=== PATIENT | male | born 1930 | race Caucasian/White ===

== ENCOUNTER 2016-11-16 05:05 | Inpatient (IN) ==
[2016-11-16] MEDS ORDERED: 0.9 % Sodium Chloride 500 ML IVC ONE (05:09)
[2016-11-16] MEDS ORDERED: Ipratropium/Albuterol Neb 3 ML IH ONE (05:09)
[2016-11-16] MEDS ORDERED: Ondansetron 4 MG/2 ML VIAL IVP ONE (05:13)
[2016-11-16] MEDS ORDERED: Ondansetron 4 MG/2 ML VIAL ONE (05:14)
--- NOTE | 2016-11-16 05:27 | Emergency Department Note ---
START Narrative - START START: I examined this patient and my medical decision-making was reviewed with the SAP FUNCTIONAL ANALYST/PA/Advanced Practice Nurse/Resident Physician. I agree with the documented findings, disposition and treatment plan as described except to the extent set forth below. ED attending note: Patient seen with TRANSITIONAL Resident Dr. Mendez. Please see a copy of his note for details of the H&P, evaluation, management and disposition of this patient. We independently had [id number] contact with the patient Briefly: A 86-year-old male transferred from the [facility] via EMS from the long-term care unit. Patient has a history of prior stroke and dementia responded to a "rapid response". For respiratory distress. Patient has dementia and unable to provide a lot of history here. Patient has a thick tenacious brown sputum and mucus in the mouth. Some coarse breath sounds slightly hypoxic 93% on 2 L/m nasal cannula to get back in the 20s tachycardic in the mid 20s. EKG shows no acute ischemic changes. Patient has mild abdominal tenderness without distention. He is on Coumadin. Patient will get a noncontrast CT of the head and of the abdomen and pelvis as well. Probable chest x-ray. Troponin lactate CBC chemistry urinalysis. We will get an IV fluid bolus. Provided 45 minutes critical care service for this patient. Admission anticipated. Disposition pending.
[2016-11-16 05:31] LABS: Basophils % 0.1 %; Eosinophils # 0.1 K/mcL (0.0-0.6); Eosinophils % 1.9 %; Hematocrit 40.4 % (37.5-50.1); Hemoglobin 13.1 g/dL (12.9-16.9); Immature Granulocytes % 0.1 % (0-4); Lymphocytes # 0.6 K/mcL (0.6-4.6); Lymphocytes % 8.7 %; Mean Corpuscular HGB Conc 32.4 g/dL (31.6-35.5); Mean Corpuscular Hemoglobin 30.4 pg (28.0-33.3); Mean Corpuscular Volume 93.7 fL (83.0-100.0); Mean Platelet Volume 9.5 fL (9.4-12.4); Monocytes # 0.2 K/mcL (0.0-1.3); Monocytes % 2.9 %; Neutrophils # 5.9 K/mcL (1.6-8.9); Platelet Count 188 K/mcL (140-400); Red Blood Count 4.31 M/mcL (4.19-5.50); Red Cell Distribution Width 14.5 % (11.5-14.5); Segmented Neutrophils % 86.3 %
[2016-11-16 05:35] LABS: INR 1.7; Prothrombin Time 18.1 Seconds (9.4-12.1)
[2016-11-16 05:44] LABS: BUN/Creatinine Ratio 25 (6-26); Blood Urea Nitrogen 24 mg/dL (8-26); Carbon Dioxide 25 mEq/L (19-29); Chloride 102 mEq/L (98-109); Glucose 159 mg/dL (70-99); Osmolality,Calculated 295 (280-300); Potassium 3.7 mEq/L (3.5-4.5); Sodium 139 mEq/L (136-145); eGFR For African Americans > 60 (> 60); eGFR For Non-African Americans > 60 (> 60)
[2016-11-16] MEDS ORDERED: Levofloxacin 750 MG/150 ML 750 MG/150 ML BAG IVPB ONE (05:51)
[2016-11-16 05:56] LABS: Bilirubin,Urine Negative (Negative); Blood,Urine Small (Negative); Clarity,Urine Clear (Clear); Color,Urine Yellow (Yellow); Glucose,Urine (UA) Normal (Normal); Ketones,Urine Negative (Negative); Leukocyte Esterase,Urine Negative (Negative); Nitrite,Urine Negative (Negative); Protein,Urine Negative (Neg-Trace); Specific Gravity,Urine 1.008 (1.010-1.025); Urobilinogen,Urine Normal (Normal)
--- NOTE | 2016-11-16 05:56 | Emergency Department Note ---
Disposition Clinical Impression: Elevated troponin, Hypoxia Right lower lobe pneumonia Qualifiers: Pneumonia type: aspiration pneumonia Aspiration pneumonia type: unspecified Qualified Code(s): J69.0 - Pneumonitis due to inhalation of food and vomit Disposition: Admitted As Inpatient Condition: Fair Time of Disposition: 06:45 General Adult HPI - General Chief complaint: ED Shortness of Breath/Dyspnea Stated complaint: PORTILLO Time Seen by Provider: 11/16/16 05:24 Source: patient, other Mode of arrival: ambulatory Limitations: physical limitation, other Nursing Notes Reviewed: Yes Vital Signs Reviewed: Yes - History of Present Illness HPI Narrative: Mr Alonso is a 86yo male with PMH of COPD, HTN, HLD, dementia, 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 Patient is unable to give a history due to dementia. On arrival here, patient is afebrile, tachycardic up to 120s, normotensive. Patient came in on a non-rebreather mask. Patient is actively vomiting/coughing dark brown sputum. He is able to tell me that he does not hurt anywhere. On exam, lung auscultation is difficult however no significant wheezing heard. Abdomen is soft, nontender. 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 - Related Data Allergies Allergy/AdvReac Type Severity Reaction Status Date / Time No Known Allergies Allergy Verified 11/16/16 05:15 Limitations: ROS unobtainable due to patients medical condition Past Medical History - Past Medical History Medical history: Reports: other Psychiatric history: Reports: PTSD - Social History Smoking Status: Never smoker Smokeless Tobacco Status: No Alcohol use: Reports: none Drug use: Reports: none Physical Exam - General Limitations: physical limitation, other General appearance: alert - Head Head exam: atraumatic, normocephalic - Eye Eye exam: Present: normal appearance, PERRL, EOMI - ENT ENT exam: normal exam, mucous membranes moist - Neck Neck exam: Present: normal inspection - Chest Chest inspection: Present: normal inspection, symmetric chest wall rise - Respiratory Respiratory exam: Present: other (diminished lung sounds bilaterally). 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 Patient is unable to give a history due to dementia. On arrival here, patient is afebrile, tachycardic up to 120s, normotensive. Patient came in on a non-rebreather mask. Patient is actively vomiting/coughing dark brown sputum. He is able to tell me that he does not hurt anywhere. On exam, lung auscultation is difficult however no significant wheezing heard. Abdomen is soft, nontender. Will do a head CT, CXR, and EKG. Will get labs including a lactic acid and a troponin. Will give a breathing treatment and 500cc bolus. - Reevaluation(s) Reevaluation #1: CXR showed a right lower lobe pneumonia. Troponin elevated at 0.07. Pending CT head. Will give dose of IV levaquin. Reevaluation #2: Head CT negative. Lactic acid elevated at 2.4. Will discuss admission with the hospitalist. - Consultations Consultation #1: Discussed patient with hospitalist and she accepted them for admission. Per her request will get CTA chest and give IV vanco. 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 Patient is unable to give a history due to dementia. On arrival here, patient is afebrile, tachycardic up to 120s, normotensive. Patient came in on a non-rebreather mask. Patient is actively vomiting/coughing dark brown sputum. He is able to tell me that he does not hurt anywhere. On exam, lung auscultation is difficult however no significant wheezing heard. Abdomen is soft, nontender. CXR showed a right lower lobe pneumonia, will give a breathing treatment and a dose of IV levaquin. Believe that his acute respiratory distress was likely secondary to acute aspiration pneumonia. Troponin elevated at 0.07. It is unknown when patient's last cardiac work-up was. Will discuss the cause with hospitalist for admission. - Medical Records Medical records reviewed: Yes I reviewed the patient's medical records. - Lab Data Lab results reviewed: Yes I reviewed the patient's lab results. Lab results narrative: Troponin elevated at 0.07. Lactic acid elevated at 2.4 Result diagrams: 11/16/16 05:05 11/16/16 05:05 Lab Results 11/16/16 11/16/16 11/16/16 Range/Units 05:05 05:05 05:05 WBC 6.8 (4.3-11.1) K/mcL RBC 4.31 (4.19-5.50) M/mcL Hgb 13.1 (12.9-16.9) g/dL Hct 40.4 (37.5-50.1) % MCV 93.7 (83.0-100.0) fL MCH 30.4 (28.0-33.3) pg MCHC 32.4 (31.6-35.5) g/dL RDW 14.5 (11.5-14.5) % Plt Count 188 (140-400) K/mcL MPV 9.5 (9.4-12.4) fL Immature Gran % 0.1 (0-4) % Seg Neutrophils % 86.3 % Lymphocytes % 8.7 % Monocytes % 2.9 % Eosinophils % 1.9 % Basophils % 0.1 % Neutrophils # 5.9 (1.6-8.9) K/mcL Lymphocytes # 0.6 (0.6-4.6) K/mcL Monocytes # 0.2 (0.0-1.3) K/mcL Eosinophils # 0.1 (0.0-0.6) K/mcL Basophils # 0.0 (0.0-0.2) K/mcL PT 18.1 H (9.4-12.1) Seconds INR 1.7 Sodium 139 (136-145) mEq/L Potassium 3.7 (3.5-4.5) mEq/L Chloride 102 (98-109) mEq/L Carbon Dioxide 25 (19-29) mEq/L BUN 24 (8-26) mg/dL Creatinine 0.96 (0.72-1.25) mg/dL Est GFR ( Amer) > 60 (> 60) Est GFR (Non-Af Amer) > 60 (> 60) BUN/Creatinine Ratio 25 (6-26) Glucose 159 H (70-99) mg/dL POC Glucose (58-89) Calculated Osmolality 295 (280-300) Lactic Acid (0.5-2.2) mmol/L Calcium 9.0 (8.6-10.8) mg/dL Troponin I (0-0.03) ng/mL B-Natriuretic Peptide (0-100) pg/mL Urine Color (Yellow) Urine Clarity (Clear) Urine pH (5.0-8.0) pH Units Ur Specific [place] (1.010-1.025) Urine Protein (Neg-Trace) mg/dL Urine Glucose (UA) (Normal) mg/dL Urine Ketones (Negative) mg/dL Urine Blood (Negative) Urine Nitrite (Negative) Urine Bilirubin (Negative) Urine Urobilinogen (Normal) mg/dL Ur Leukocyte Esterase (Negative) Urine Microscopic RBC (0-3) per hpf Urine Microscopic WBC (0-3) per hpf Ur Squamous Epith Cells (None-Few) per lpf Urine Bacteria (None-Few) per hpf Hyaline Casts (None-Few) per lpf Ur Culture Indicated? (NO) 11/16/16 11/16/16 11/16/16 Range/Units 05:05 05:05 05:05 WBC (4.3-11.1) K/mcL RBC (4.19-5.50) M/mcL Hgb (12.9-16.9) g/dL Hct (37.5-50.1) % MCV (83.0-100.0) fL MCH (28.0-33.3) pg MCHC (31.6-35.5) g/dL RDW (11.5-14.5) % Plt Count (140-400) K/mcL MPV (9.4-12.4) fL Immature Gran % (0-4) % Seg Neutrophils % % Lymphocytes % % Monocytes % % Eosinophils % % Basophils % % Neutrophils # (1.6-8.9) K/mcL Lymphocytes # (0.6-4.6) K/mcL Monocytes # (0.0-1.3) K/mcL Eosinophils # (0.0-0.6) K/mcL Basophils # (0.0-0.2) K/mcL PT (9.4-12.1) Seconds INR Sodium (136-145) mEq/L Potassium (3.5-4.5) mEq/L Chloride (98-109) mEq/L Carbon Dioxide (19-29) mEq/L BUN (8-26) mg/dL Creatinine (0.72-1.25) mg/dL Est GFR ( Amer) (> 60) Est GFR (Non-Af Amer) (> 60) BUN/Creatinine Ratio (6-26) Glucose (70-99) mg/dL POC Glucose (58-89) Calculated Osmolality (280-300) Lactic Acid 2.4 H (0.5-2.2) mmol/L Calcium (8.6-10.8) mg/dL Troponin I 0.07 H* (0-0.03) ng/mL B-Natriuretic Peptide 24 (0-100) pg/mL Urine Color (Yellow) Urine Clarity (Clear) Urine pH (5.0-8.0) pH Units Ur Specific [place] (1.010-1.025) Urine Protein (Neg-Trace) mg/dL Urine Glucose (UA) (Normal) mg/dL Urine Ketones (Negative) mg/dL Urine Blood (Negative) Urine Nitrite (Negative) Urine Bilirubin (Negative) Urine Urobilinogen (Normal) mg/dL Ur Leukocyte Esterase (Negative) Urine Microscopic RBC (0-3) per hpf Urine Microscopic WBC (0-3) per hpf Ur Squamous Epith Cells (None-Few) per lpf Urine Bacteria (None-Few) per hpf Hyaline Casts (None-Few) per lpf Ur Culture Indicated? (NO) 11/16/16 11/16/16 Range/Units 05:12 05:48 WBC (4.3-11.1) K/mcL RBC (4.19-5.50) M/mcL Hgb (12.9-16.9) g/dL Hct (37.5-50.1) % MCV (83.0-100.0) fL MCH (28.0-33.3) pg MCHC (31.6-35.5) g/dL RDW (11.5-14.5) % Plt Count (140-400) K/mcL MPV (9.4-12.4) fL Immature Gran % (0-4) % Seg Neutrophils % % Lymphocytes % % Monocytes % % Eosinophils % % Basophils % % Neutrophils # (1.6-8.9) K/mcL Lymphocytes # (0.6-4.6) K/mcL Monocytes # (0.0-1.3) K/mcL Eosinophils # (0.0-0.6) K/mcL Basophils # (0.0-0.2) K/mcL PT (9.4-12.1) Seconds INR Sodium (136-145) mEq/L Potassium (3.5-4.5) mEq/L Chloride (98-109) mEq/L Carbon Dioxide (19-29) mEq/L BUN (8-26) mg/dL Creatinine (0.72-1.25) mg/dL Est GFR ( Amer) (> 60) Est GFR (Non-Af Amer) (> 60) BUN/Creatinine Ratio (6-26) Glucose (70-99) mg/dL POC Glucose 145 H (58-89) Calculated Osmolality (280-300) Lactic Acid (0.5-2.2) mmol/L Calcium (8.6-10.8) mg/dL Troponin I (0-0.03) ng/mL B-Natriuretic Peptide (0-100) pg/mL Urine Color Yellow (Yellow) Urine Clarity Clear (Clear) Urine pH 6.0 (5.0-8.0) pH Units Ur Specific [place] 1.008 L (1.010-1.025) Urine Protein Negative (Neg-Trace) mg/dL Urine Glucose (UA) Normal (Normal) mg/dL Urine Ketones Negative (Negative) mg/dL Urine Blood Small H (Negative) Urine Nitrite Negative (Negative) Urine Bilirubin Negative (Negative) Urine Urobilinogen Normal (Normal) mg/dL Ur Leukocyte Esterase Negative (Negative) Urine Microscopic RBC 5-15 H (0-3) per hpf Urine Microscopic WBC 0-3 (0-3) per hpf Ur Squamous Epith Cells Moderate H (None-Few) per lpf Urine Bacteria None Seen (None-Few) per hpf Hyaline Casts None Seen (None-Few) per lpf Ur Culture Indicated? NO (NO) - Radiology Data Radiology results reviewed: Yes I reviewed the patient's radiology results. Chest X-Ray 11/16/16 05:09 IMPRESSION: 1. Right lower lobe pneumonia. Recommend chest radiograph in 8 weeks to confirm resolution. D/ / Darnell Rogers MD / Darnell Rogers MD Interpreting Provider: Darnell Rogers MD - EKG Data EKG #1 EKG attestation: Yes I reviewed and interpreted this EKG. EKG results narrative: EKG show sinus tachycardia and nonspecific ST ant T wave abnormalities. Vent rate 121bpm, Pr int 136ms, QRS dur 77ms, QTc 410ms. No significant changes when compared to previous EKG form 01/17/2015
[2016-11-16 06:00] LABS: Bacteria,Urine None Seen per hpf (None-Few); Hyaline Casts,Urine None Seen per lpf (None-Few); Squamous Epithelial Cell,Urine Moderate per lpf (None-Few); WBC,Urine 0-3 per hpf (0-3)
[2016-11-16] MEDS ORDERED: Vancomycin 1,000 MG in D5% in Water 250 ML IVPB ONE (06:40)
[2016-11-16] MEDS ORDERED: *HR* Enoxaparin 80 MG/0.8 ML SYRINGE SQ STA (06:43)
[2016-11-16] MEDS ORDERED: Ibuprofen 400 MG TABLET PO PRN (09:03)
[2016-11-16] MEDS ORDERED: Acetaminophen 325 MG TABLET PO PRN (09:03)
[2016-11-16] MEDS ORDERED: Naloxone 0.4 MG/ML INJ IVP PRN (09:03)
[2016-11-16] MEDS ORDERED: Ondansetron 4 MG/2 ML VIAL IVP PRN (09:03)
--- NOTE | 2016-11-16 09:29 | Internal Med History&Physical ---
<JudiGaurav T - Last Filed: 11/16/16 10:43> Date of Encounter: 11/16/16 Internal Medicine - H&P: HPI History of present illness: Mr. Alonso is a 86 year old male Internal Medicine - H&P: Meds Acetaminophen [Tylenol] 975 mg PO Q8HR 11/16/16 [History] Amlodipine [Norvasc] 5 mg PO DAILY 11/16/16 [History] Atorvastatin [Lipitor] 10 mg PO HS 11/16/16 [History] Cholecalciferol (D-3) [Vitamin D] 4,000 units PO DAILY 11/16/16 [History] Donepezil [Aricept] 10 mg PO HS 11/16/16 [History] Escitalopram [Lexapro] 10 mg PO HS 11/16/16 [History] Finasteride [Proscar] 5 mg PO DAILY 11/16/16 [History] Furosemide [Lasix] 20 mg PO DAILY 11/16/16 [History] Ipratropium/Albuterol Neb [Duoneb] 3 ml IH Q6HR 11/16/16 [History] MOM Conc [Milk of Magnesia Conc] 30 ml PO DAILY PRN 11/16/16 [History] Memantine [Namenda] 10 mg PO BID 11/16/16 [History] Omeprazole [PriLOSEC] 20 mg PO BID 11/16/16 [History] Polyethylene Glycol 3350 [MiraLAX] 17 gm PO DAILY 11/16/16 [History] Potassium Chloride [K-Tab ER] 20 meq PO DAILY 11/16/16 [History] RisperiDONE [Risperidone] 0.25 mg PO Q12HR PRN 11/16/16 [History] RisperiDONE [Risperidone] 0.25 mg PO QAM 11/16/16 [History] RisperiDONE [Risperidone] 0.5 mg PO HS 11/16/16 [History] Sennosides/Docusate Sodium [Senna-Docusate Sodium Tablet] 2 tab PO HS PRN [History] Warfarin [Coumadin] 5 mg PO MOFR 11/16/16 [History] Warfarin [Coumadin] 6 mg PO SUTUWETHSA 11/16/16 [History] Allergies No Known Allergies Allergy (Verified 11/16/16 05:15) All Systems PM: A 10-system review of systems was performed and is negative for pertinent findings except as documented above in the HPI. - Constitutional Vitals: Temp Pulse Resp BP Pulse Ox 97.8 F 94 16 112/69 94 L 11/16/16 08:35 11/16/16 10:32 11/16/16 10:32 11/16/16 10:32 11/16/16 10:32 Internal Med - H&P Results - Labs CBC & Chem 7: 11/16/16 05:05 11/16/16 05:05 - Impressions ITS Impressions KUB X-Ray 11/16/16 09:13 IMPRESSION: No acute abnormality identified. D/ / 11/16/2016 10:17:09 Noah Colmenares MD / Deneen Goncalves Interpreting Provider: Noah Colmenares MD - Attending Attestation I have independently reviewed this patient and examined this patient and I have discussed the plan of management with KENRICK Quiroz, whose documentation below I agree with 86 Y/O M with Dementia, resident of [place] [facility] facility, HTN, PE on warfarin, HLD, CVA Found to be in respiratory distress in [place] and transferred here. Poor historian due to Dementia but per ED note had brownish sputum in his mouth at time of presentation. Physical examination reveals tachycardia, tachypnea, afebrile, O2 sat 94% on 4L of O2, cachectic, chronically ill-looking elderly man, in mild respiratory distress. Chest revealed bilateral rhonchi, worse in RML and RLL. No wheezes. Hear t sounds S1, S2 only, no m/g/r. Abdomen is tender++, no guarding, bowel sounds present, no edema of lower extremities. Labs and Imaging reviewed: No leukocytosis, CBC unremarkable, Lactic acid 2.4, Troponin elevated at 0.07, INR 1.7. BNP/UA WNL. CXR with RLL pneumonia. CTA revealed no PE, aspiration PNA, possible mild pulmonary edema, esophagitis, EKG with sinus tachycardia VR 126, non-specific T wave changes not different from prior EKG. Head CT: No acute intracranial abnormalities Assessment/Plan: Acute hypoxemic respiratory failure secondary to aspiration pneumonia/HCAP, PSI score >130, Lactic acidosis, Elevated troponins possibly from demand ischemia, Suspected dysphagia, Esophagitis, Hx of PE on Warfarin. Continue Vanco and Levofloxacin, add Zosyn for anaerobic coverage, Obtain ABG, Supplemental O2, Speech and swallow for dysphagia, bedside swallow test, if patient tolerates, resume Warfarin and other home meds, if not continue lovenox , IVF at 80cc/hr, repeat lactate. KUB to assess abdomen, Monitor INR and Vanco trough. IV PPIs, GI consult for esophagitis, NPO for now, Patient is at high risk for mortality. Patient is [id number] Other details as in case management associate documentation <Lori Quiroz - Last Filed: 11/16/16 15:41> Date of Encounter: 11/16/16 Time of Encounter: 08:50 Assessment and Plan (1) Acute respiratory failure with hypoxia Current visit: Yes Status: Acute Pt presented to ED with respiratory failure with hypoxia, sats in the 70s, with evidence of possible aspiration. Sats in the 70s on arrival Stat ABG on admission Continuous 02/ titrate to maintain sat >92% Continuous 02 sats Bipap if conditionn worsens (2) Hypoxia Current visit: Yes Status: Acute Plan same as above (3) Right lower lobe pneumonia Current visit: Yes Status: Acute Xray shows RLL pneumonia, most likely from aspiration. Pts condition appears to have improved since arrival to ED. Pt is in no apparent distress on . Continue Vancomycin 1g IV and Levaquin 750mg IV Zosyn 3.375g IV Monitor 02 sats Continous 02/ titrate to maintain 02 sat >92% Blood Culture x2 Sputum Culture Qualifiers: Pneumonia type: aspiration pneumonia Aspiration pneumonia type: due to vomit Qualified Code(s): J69.0 - Pneumonitis due to inhalation of food and vomit (4) Elevated troponin Current visit: Yes Status: Acute Elevated troponin most likely from demand ischemia and tachycardia. Repeat troponin q6x 2 (5) Pulmonary embolism Current visit: Yes Status: Acute Pt is already being [facility] Will continue Warfin dose after medications verified and bedside swallow eval completed 02, cardiac monitoring, and continuous sats as above Qualifiers: Pulmonary embolism type: other Chronicity: unspecified Acute cor pulmonale presence: without acute cor pulmonale Qualified Code(s): I26.99 - Other pulmonary embolism without acute cor pulmonale (6) Dysphagia Current visit: Yes Status: Chronic Will assess for dysphagia due to aspiration Aspiration precautions ordered Bedside swallow eval Qualifiers: Dysphagia type: unspecified Qualified Code(s): R13.10 - Dysphagia, unspecified (7) Esophagitis Current visit: Yes Status: Acute Plan same as above for dysphagia Consult GI Internal Medicine - H&P: HPI Chief complaint: Pneumonia, Hypoxia, Respiratory failure Admitted From: Long-term Nursing Facility Plans for Post Hospital Care: Transfer Care Home Facility History of present illness: Mr. Alonso is a 86 year old male who [place] [facility] ED from [place] [facility] with hypoxia and respiratory failure, possible aspiration. Pt currently being treated for PE with Warfarin. Pt also has diffuse abd tenderness. Pt with history of dementia and CVA and is unable to contribute to history. Past Med Surg Social Fam HX - Past Medical History Medical history: CVA, dementia, hyperlipidemia, hypertension, pulmonary embolus , other Psychiatric history: PTSD - Social History Smoking Status: Never smoker Smokeless Tobacco Status: No Alcohol use: none Drug use: none Current living situation: ECF Activity Level: Bed bound ROS unobtainable: due to mental status All Systems PM: A 10-system review of systems was performed and is negative for pertinent findings except as documented above in the HPI. - Constitutional Constitutional: fatigue Additional comments: Pt reports feeling tired. - Respiratory Respiratory: cough - Gastrointestinal Gastrointestinal: abdominal pain - Musculoskeletal Musculoskeletal ROS IM: no back pain, no myalgias, no neck pain Additional comments: Pt denies pain - Constitutional Vitals: Temp Pulse Resp BP Pulse Ox 97.8 F 87 18 129/71 96 11/16/16 08:35 11/16/16 08:35 11/16/16 08:35 11/16/16 08:35 11/16/16 08:35 General appearance: Present: cooperative, no acute distress Exam: Pt is alert to person and appears to answer questions appropriately - Eye Eye exam: Present: normal appearance, conjuntiva pink - ENT ENT exam: Present: mucous membranes moist - Respiratory Respiratory exam: Present: decreased breath sounds. Absent: accessory muscle use, chest wall tenderness, respiratory distress, rhonchi, stridor, wheezes, tachypnea - Cardiovascular Cardiovascular exam: Present: RRR, +S1, +S2. Absent: bradycardia, JVD, tachycardia - GI/Abdominal GI/Abdominal exam: Present: diminished bowel sounds, distended, firm, tenderness - Extremities Exam Extremities exam: Present: radial pulses palpable and symetrical. Absent: pedal edema - Expanded Upper Extremities Exam General: Present: normal inspection - Neurological Exam Neurological exam: Present: alert, altered, speech deficit Internal Med - H&P Results - Labs CBC & Chem 7: 11/16/16 05:05 11/16/16 05:05
[2016-11-16] MEDS: Piperacillin/Tazobactam 3.375 GM in D5% in Water (Mini-Bag+) 100 ML IVPB SCH ×2 (09:57→17:58)
[2016-11-16 10:44] LABS: ABG Base Excess 2.9 mEq/L (-2.0 to 3.0); ABG HCO3 28.5 mEQ/L (21-27); ABG Oxygen Saturation 96 % (95-98); ABG PCO2 47 mmHg (35-45); ABG PH 7.39 pH Units (7.32-7.45); ABG PO2 85 mmHg (85-104); ABG TCO2 29.9 mEq/L (20-26)
[2016-11-16 10:47] LABS: Blood Gas FiO2 36 %
[2016-11-16] MEDS ORDERED: MOM Conc 10 ML UD.LIQ PO PRN (11:58)
[2016-11-16] MEDS ORDERED: *HR* Warfarin 5 MG TABLET PO SCH ×2 (12:16→18:00)
[2016-11-16] MEDS: Ipratropium/Albuterol Neb 3 ML IH SCH ×3 (16:21→23:13)
[2016-11-16] MEDS: Acetaminophen 325 MG TABLET PO SCH (17:58)
[2016-11-16] MEDS: Pantoprazole 40 MG VIAL IVP SCH (17:59)
[2016-11-16] MEDS ORDERED: *HR* Warfarin 3 MG TABLET PO SCH (18:00)
[2016-11-16] MEDS ORDERED: Vancomycin 1,250 MG in D5% in Water 250 ML IVPB SCH (20:00)
[2016-11-16] MEDS: risperiDONE 0.25 MG TABLET PO SCH (21:22)
[2016-11-17] MEDS: Piperacillin/Tazobactam 3.375 GM in D5% in Water (Mini-Bag+) 100 ML IVPB SCH ×3 (00:07→16:55)
[2016-11-17] MEDS: Acetaminophen 325 MG TABLET PO SCH ×3 (00:11→16:12)
[2016-11-17] MEDS ORDERED: *HR* Promethazine 25 MG/ML VIAL IVP ONE (00:52)
[2016-11-17] MEDS: Ipratropium/Albuterol Neb 3 ML IH SCH ×4 (04:32→22:42)
[2016-11-17 04:50] LABS: Basophils % 0.1 %; Immature Granulocytes % 0.6 % (0-4); Lymphocytes # 0.6 K/mcL (0.6-4.6); Lymphocytes % 4.1 %; Mean Corpuscular HGB Conc 32.3 g/dL (31.6-35.5); Mean Corpuscular Volume 92.8 fL (83.0-100.0); Mean Platelet Volume 9.6 fL (9.4-12.4); Monocytes # 0.8 K/mcL (0.0-1.3); Monocytes % 5.8 %; Platelet Count 170 K/mcL (140-400); Red Blood Count 3.77 M/mcL (4.19-5.50); Red Cell Distribution Width 14.6 % (11.5-14.5); Segmented Neutrophils % 89.4 %
[2016-11-17 04:53] LABS: Hemoglobin 11.3 g/dL (12.9-16.9); Neutrophils # 12.9 K/mcL (1.6-8.9)
[2016-11-17 05:00] LABS: INR 2.3; Prothrombin Time 25.8 Seconds (9.4-12.1)
[2016-11-17 05:10] LABS: BUN/Creatinine Ratio 26 (6-26); Blood Urea Nitrogen 31 mg/dL (8-26); Calcium 8.6 mg/dL (8.6-10.8); Carbon Dioxide 23 mEq/L (19-29); Chloride 103 mEq/L (98-109); Glucose 116 mg/dL (70-99); Osmolality,Calculated 292 (280-300); Sodium 137 mEq/L (136-145); eGFR For African Americans > 60 (> 60); eGFR For Non-African Americans 58 (> 60)
[2016-11-17] MEDS: Pantoprazole 40 MG VIAL IVP SCH ×2 (06:14→18:05)
[2016-11-17] MEDS: risperiDONE 0.25 MG TABLET PO PRN (06:23)
[2016-11-17] MEDS: Finasteride 5 MG TABLET PO SCH (08:20)
[2016-11-17] MEDS: *HR* HYDROcodone/Acet 5/325 mg TABLET PO PRN ×2 (08:20→16:12)
[2016-11-17] MEDS: Cholecalciferol (D-3) 1,000 UNIT TABLET PO SCH (08:20)
[2016-11-17] MEDS: Levofloxacin 750 MG/150 ML 750 MG/150 ML BAG IVPB SCH (08:22)
[2016-11-17] MEDS: amLODIPine 5 MG TABLET PO SCH (08:23)
[2016-11-17] MEDS: risperiDONE 0.25 MG TABLET PO SCH ×2 (08:23→20:50)
[2016-11-17] MEDS ORDERED: Aminoglycoside Consult 1 EACH MC ONE (08:24)
[2016-11-17] MEDS ORDERED: *HR* Warfarin 5 MG TABLET PO SCH ×2 (09:00→18:00)
--- NOTE | 2016-11-17 10:20 | Gastroenterology Consult Note ---
<Viri Mendez - Last Filed: 11/17/16 14:13> Date of Encounter: 11/17/16 Time of Encounter: 12:05 - Assessment and plan (1) Acute respiratory failure with hypoxia Current Visit: Yes Status: Acute Assessment and plan: hospitalist mgmt. (2) Elevated troponin Current Visit: Yes Status: Acute Assessment and plan: Indication in medical record this is due to demand. (3) Esophagitis Current Visit: Yes Status: Acute Assessment and plan: wall thickening and air-fluid filled areas noted in CTA exam, likely 2ndary to pre-existing diagnosis of achalasia. Dr. Bueno to determine if EGD to evaluate when INR is less than 2.0. Patient is on Coumadin therapy for b/l PEs, will need to go on heparin gtt which will need to be held 6 hours prior to EGD, if unable to hold COUMADIN safely. (4) Pulmonary embolism Current Visit: Yes Status: Acute Assessment and plan: on COUMADIN for PE history, transition to heparin gtt if unable to hold COUMADIN safely. INR needs to be less than 2.0 for procedure. Last blood clot 2015 Qualifiers: Pulmonary embolism type: other Chronicity: unspecified Acute cor pulmonale presence: without acute cor pulmonale Qualified Code(s): I26.99 - Other pulmonary embolism without acute cor pulmonale (5) Right lower lobe pneumonia Current Visit: Yes Status: Acute Assessment and plan: hospitalist management. Qualifiers: Pneumonia type: aspiration pneumonia Aspiration pneumonia type: due to vomit Qualified Code(s): J69.0 - Pneumonitis due to inhalation of food and vomit (6) Dysphagia Current Visit: Yes Status: Chronic Assessment and plan: Hx of achalasia. 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 Patient is unable to give a history due to dementia. On arrival at [facility] patient was afebrile, tachycardic up to 120s, normotensive. Patient came in on a non-rebreather mask. Patient was actively vomiting/coughing dark brown sputum. He was able to tell ER personnel that he does not hurt anywhere. He is on Coumadin for b/l PEs, currently his INR is 2.3 , troponin elevated at 0.28. He was diagnosed with RLL pneumonia. All information was taken from the medical record and his daughter. Patient has a history of achalasia, last EGD at [facility] was approximately 6 months ago per the daughter, she does not wish for this to be repeated if not absolutely necessary. He3 is on Coumadin therapy for a blood clot she believes was in 2015. Colonoscopy: ? EGD: ? Past Med Surg Social Fam HX - Past Medical History Medical history: CVA, dementia, hyperlipidemia, hypertension, pulmonary embolus , other Psychiatric history: PTSD - Social History Smoking Status: Never smoker Smokeless Tobacco Status: No Alcohol use: none Drug use: none ROS unobtainable: due to mental status - Gastrointestinal Anticoagulation Use: Coumadin - Constitutional Vitals: Temp Pulse Resp BP Pulse Ox 98.0 F 64 18 94/49 96 11/17/16 06:57 11/17/16 06:57 11/17/16 06:57 11/17/16 06:57 11/17/16 06:57 General appearance: Present: A&O X 1, disheveled, mild distress - Head Head exam: Present: atraumatic, normocephalic - Eye Eye exam: Present: normal appearance, sclera anicteric - ENT ENT exam: Present: mucous membranes moist Additional comments: brown tinged sputum noted, thick. - Neck Neck exam general surgery: Present: normal inspection, trachea midline - Respiratory Respiratory exam: Present: CTAB - Cardiovascular Cardiovascular exam: Present: RRR, +S1, +S2 - GI/Abdominal GI/Abdominal exam: Present: normal bowel sounds, soft, no peritoneal signs - Rectal Rectal exam: Present: deferred - Extremities Exam Extremities exam: Present: warm - Neurological Exam Neurological exam: Present: altered - Psychiatric Psychiatric exam: Present: flat affect - Skin Skin exam: Present: dry, intact, normal color, warm Results - Labs CBC & Chem 7: 11/17/16 04:37 11/17/16 04:37 Labs: Last Result Calcium 8.6 mg/dL (8.6-10.8) 11/17/16 04:37 Troponin I 0.28 ng/mL (0-0.03) H* 11/16/16 16:46 Entire Visit Hgb 11.3 g/dL (12.9-16.9) L D 11/17/16 04:37 Hct 35.0 % (37.5-50.1) L 11/17/16 04:37 PT 25.8 Seconds (9.4-12.1) H 11/17/16 04:37 - ABG ABG results: ABG ABG pH 7.39 pH Units (7.32-7.45) 11/16/16 10:30 ABG pCO2 47 mmHg (35-45) H 11/16/16 10:30 ABG pO2 85 mmHg (85-104) 11/16/16 10:30 ABG O2 Saturation 96 % (95-98) 11/16/16 10:30 PT/INR, D-dimer PT 25.8 Seconds (9.4-12.1) H 11/17/16 04:37 - Impressions Impressions KUB X-Ray 11/16/16 09:13 IMPRESSION: No acute abnormality identified. D/ / 11/16/2016 10:17:09 Noah Colmenares MD / Deneen Goncalves Interpreting Provider: Noah Colmenares MD Consult Discharge Plan - Plan [facility]errals: [facility] [Primary Care Provider[facility] - <Danny Bueno - Last Filed: 11/17/16 18:27> Date of Encounter: 11/17/16 Time of Encounter: 18:00 - Time Spent With Patient Total time spent is greater than 50% in coordination of care (as documented) at patient's floor/unit and/or counseling patient: GI History of Present Illness - Data of Consult Requesting Physician: Shane Garcia - Consult Narrative History of present illness: Mr. Alonso is a 86 year old male - Constitutional Vitals: Temp Pulse Resp BP Pulse Ox 98.3 F 74 16 115/55 95 11/17/16 14:58 11/17/16 14:58 11/17/16 17:06 11/17/16 14:58 11/17/16 17:06 Results - Labs CBC & Chem 7: 11/17/16 04:37 11/17/16 04:37 Labs: Last Result Calcium 8.6 mg/dL (8.6-10.8) 11/17/16 04:37 Troponin I 0.28 ng/mL (0-0.03) H* 11/16/16 16:46 Entire Visit Hgb 11.3 g/dL (12.9-16.9) L D 11/17/16 04:37 Hct 35.0 % (37.5-50.1) L 11/17/16 04:37 PT 25.8 Seconds (9.4-12.1) H 11/17/16 04:37 - ABG ABG results: ABG ABG pH 7.39 pH Units (7.32-7.45) 11/16/16 10:30 ABG pCO2 47 mmHg (35-45) H 11/16/16 10:30 ABG pO2 85 mmHg (85-104) 11/16/16 10:30 ABG O2 Saturation 96 % (95-98) 11/16/16 10:30 PT/INR, D-dimer PT 25.8 Seconds (9.4-12.1) H 11/17/16 04:37 - Attending Attestation I examined this patient and my medical decision-making was reviewed with the RAILROAD CAR REPAIR SUPERVISOR/PA/Advanced Practice Nurse/Resident Physician. I agree with the documented findings, disposition and treatment plan as described except to the extent set forth below. Patient with dysphagia and questionable history of achalasia. Recommendation: EGD with GE junction Botox injection once INR less than 2.
--- NOTE | 2016-11-17 12:52 | Electrocardiograph Report ---
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
--- NOTE | 2016-11-17 14:49 | Internal Med Progress Note ---
Date of Encounter: 11/17/16 Time of Encounter: 14:45 - Assessment and plan (1) Acute respiratory failure with hypoxia Current Visit: Yes Status: Acute Assessment and plan: Pt presented to ED with respiratory failure with hypoxia, sats in the 70s, with evidence of possible aspiration. Sats in the 70s on arrival CT chest showed aspiration pneumonia RLL. Currently saturating 95% on 3 L. We will continue oxygen via NC. will keep NPO and aspiration precautions. (2) Elevated troponin Current Visit: Yes Status: Acute Assessment and plan: Elevated troponin most likely from demand ischemia and tachycardia. (3) Esophagitis Current Visit: Yes Status: Acute Assessment and plan: will possibly need EGD as per GI. will keep NPO for now, added ZOfran as patient had vomited again this morning. he is high risk for worsening aspiration, already has RLL pneumonia. wall thickening and air-fluid filled areas noted in CTA exam, likely 2ndary to pre-existing diagnosis of achalasia. may need EGD once INR<2. on coumadin for PE, recent CTA is negative for PE, will hold coumadin for now in anticipation of the procedure. (4) Pulmonary embolism Current Visit: Yes Status: Acute Assessment and plan: NO PE on recent CTA. will hold coumadin for now. saturating well on NC, denies any chest pain or sob. Qualifiers: Pulmonary embolism type: other Chronicity: unspecified Acute cor pulmonale presence: without acute cor pulmonale Qualified Code(s): I26.99 - Other pulmonary embolism without acute cor pulmonale (5) Right lower lobe pneumonia Current Visit: Yes Status: Acute Assessment and plan: continue IV antibiotics, vanco, zosyn and levo. will follow sputum gram stain and cx and blood cx. Qualifiers: Pneumonia type: aspiration pneumonia Aspiration pneumonia type: due to vomit Qualified Code(s): J69.0 - Pneumonitis due to inhalation of food and vomit (6) Dysphagia Current Visit: Yes Status: Chronic Assessment and plan: will keep NPO for now as high risk for aspiration. was started on diet as per speech, however patinet vomited again. elisabeth lkeep NPO at least until EGD, restart diet cautiously, aspiration precautions. Qualifiers: Dysphagia type: unspecified Qualified Code(s): R13.10 - Dysphagia, unspecified - Time Spent With Patient 25 - 35 minutes - Subjective Interval history: patient seen at the bedside, h/o vomiting one episode. h/o dementia, unable to have a meaningful conversation. alert and awake at the bedside. - Constitutional Vitals: Temp Pulse Resp BP Pulse Ox 97.9 F 84 18 92/85 98 11/17/16 12:22 11/17/16 12:22 11/17/16 12:22 11/17/16 12:22 11/17/16 12:22 General appearance: Present: cooperative, no acute distress Exam: General appearance: Present: cooperative, no acute distress - Eye Eye exam: Present: normal appearance, conjuntiva pink - ENT ENT exam: Present: mucous membranes moist - Respiratory Respiratory exam: Present: decreased breath sounds. Absent: accessory muscle use, chest wall tenderness, respiratory distress, rhonchi, stridor, wheezes, tachypnea - Cardiovascular Cardiovascular exam: Present: RRR, +S1, +S2. Absent: bradycardia, JVD, tachycardia - GI/Abdominal GI/Abdominal exam: Present: diminished bowel sounds, distended, firm, tenderness - Extremities Exam Extremities exam: Present: radial pulses palpable and symetrical. Absent: pedal edema - Expanded Upper Extremities Exam General: Present: normal inspection Internal Medicine: Result - Labs CBC & Chem 7: 11/17/16 04:37 11/17/16 04:37 Labs: Short CBC 11/17/16 Range/Units 04:37 WBC 14.4 H D (4.3-11.1) K/mcL Hgb 11.3 L D (12.9-16.9) g/dL Hct 35.0 L (37.5-50.1) % Plt Count 170 (140-400) K/mcL Neutrophils # 12.9 H (1.6-8.9) K/mcL BMP 11/17/16 04:37 Sodium 137 Potassium 5.0 H D Chloride 103 Carbon Dioxide 23 BUN 31 H Creatinine 1.19 Glucose 116 H Calcium 8.6 Cardiac Enzymes 11/16/16 Range/Units 16:46 Troponin I 0.28 H* (0-0.03) ng/mL - ABG Interpretation ABG results: ABG ABG pH 7.39 pH Units (7.32-7.45) 11/16/16 10:30 ABG pCO2 47 mmHg (35-45) H 11/16/16 10:30 ABG pO2 85 mmHg (85-104) 11/16/16 10:30 ABG O2 Saturation 96 % (95-98) 11/16/16 10:30 PT/INR, D-dimer PT 25.8 Seconds (9.4-12.1) H 11/17/16 04:37 Consult Discharge Plan - Plan [facility]errals: [facility] [Primary Care Provider] -
[2016-11-17] MEDS: Ondansetron 4 MG/2 ML VIAL IVP SCH (16:12)
[2016-11-17] MEDS: 0.9 % Sodium Chloride 1,000 ML IVC SCH (16:56)
[2016-11-17] MEDS ORDERED: Vancomycin 1,250 MG in D5% in Water 250 ML IVPB SCH ×2 (19:30→20:00)
[2016-11-18] MEDS: Piperacillin/Tazobactam 3.375 GM in D5% in Water (Mini-Bag+) 100 ML IVPB SCH ×2 (00:27→08:02)
[2016-11-18] MEDS: Ondansetron 4 MG/2 ML VIAL IVP SCH ×4 (00:27→23:58)
[2016-11-18] MEDS: Acetaminophen 325 MG TABLET PO SCH ×4 (00:31→23:57)
[2016-11-18] MEDS: 0.9 % Sodium Chloride 1,000 ML IVC SCH (04:13)
[2016-11-18] MEDS: Ipratropium/Albuterol Neb 3 ML IH SCH ×4 (04:40→21:26)
[2016-11-18] MEDS: Pantoprazole 40 MG VIAL IVP SCH ×2 (05:36→17:40)
[2016-11-18] MEDS: *HR* HYDROcodone/Acet 5/325 mg TABLET PO PRN ×3 (08:04→20:42)
[2016-11-18] MEDS: amLODIPine 5 MG TABLET PO SCH (08:04)
[2016-11-18] MEDS: Finasteride 5 MG TABLET PO SCH (08:04)
[2016-11-18] MEDS: Levofloxacin 750 MG/150 ML 750 MG/150 ML BAG IVPB SCH (08:04)
[2016-11-18] MEDS: risperiDONE 0.25 MG TABLET PO SCH ×2 (08:05→20:43)
[2016-11-18] MEDS: Cholecalciferol (D-3) 1,000 UNIT TABLET PO SCH (08:06)
--- NOTE | 2016-11-18 08:32 | Gastroenterology Progress Note ---
<Viri Mendez - Last Filed: 11/18/16 10:24> Date of Encounter: 11/18/16 Time of Encounter: 09:55 - Assessment and plan (1) Acute respiratory failure with hypoxia Current Visit: Yes Status: Acute Assessment and plan: hospitalist mgmt. (2) Elevated troponin Current Visit: Yes Status: Acute Assessment and plan: Indication in medical record this is due to demand. (3) Esophagitis Current Visit: Yes Status: Acute Assessment and plan: wall thickening and air-fluid filled areas noted in CTA exam, likely 2ndary to pre-existing diagnosis of achalasia. EGD w/botox to evaluate when INR is less than 2.0. Coumadin is being held. INR 2.5 today. (4) Pulmonary embolism Current Visit: Yes Status: Acute Assessment and plan: on COUMADIN for PE history, INR needs to be less than 2.0 for procedure. Last blood clot 12/2015, no PEs on current CTA Qualifiers: Pulmonary embolism type: other Chronicity: unspecified Acute cor pulmonale presence: without acute cor pulmonale Qualified Code(s): I26.99 - Other pulmonary embolism without acute cor pulmonale (5) Right lower lobe pneumonia Current Visit: Yes Status: Acute Assessment and plan: hospitalist management. Qualifiers: Pneumonia type: aspiration pneumonia Aspiration pneumonia type: due to vomit Qualified Code(s): J69.0 - Pneumonitis due to inhalation of food and vomit (6) Dysphagia Current Visit: Yes Status: Chronic Assessment and plan: Hx of achalasia. Patient has hx of CVA and dementia, Speech evaluation revealed diet of puree and thin liquids to be administered by spoon only. Diet to be NPO prior to planned EGD with botox when INR <2.0 Qualifiers: Dysphagia type: unspecified Qualified Code(s): R13.10 - Dysphagia, unspecified - Time Spent With Patient Total time spent is greater than 50% in coordination of care (as documented) at patient's floor/unit and/or counseling patient: less than 15 minutes - Subjective Interval history: Patient admitted with aspiration pneumonia. Per family member, he has history of achalasia, last EGD approximately 6 months ago at [facility]. He was admitted with respiratory failure/hypoxia due to the pneumonia. He is vomiting. Speech evaluation was completed and a diet recommended, however, the patient continued to vomit. Coumadin for reported b/l PEs is being held. Pt examined at bedside, no family present. He was resting comfortably, states no more vomiting and no pain. Could not tell me if he ate anything for breakfast today. - Constitutional Vitals: Temp Pulse Resp BP Pulse Ox 97.8 F 70 14 121/63 98 11/18/16 06:23 11/18/16 06:23 11/18/16 06:23 11/18/16 06:23 11/18/16 06:23 General appearance: Present: A&O X 1, pleasant, no acute distress - Head Head exam: Present: atraumatic, normocephalic - Eye Eye exam: Present: normal appearance, sclera anicteric - ENT ENT exam: Present: mucous membranes moist - Neck Neck exam general surgery: Present: normal inspection, trachea midline - Respiratory Respiratory exam: Present: rhonchi, wheezes Additional comments: easy and even - Cardiovascular Cardiovascular exam: Present: RRR, +S1, +S2 - GI/Abdominal GI/Abdominal exam: Present: normal bowel sounds, soft, no peritoneal signs - Rectal Rectal exam: Present: deferred - Extremities Exam Extremities exam: Present: warm Additional comments: L sided weakness. - Neurological Exam Neurological exam: Present: altered, facial droop Additional comments: L side, from prior CVA - Psychiatric Psychiatric exam: Present: normal affect, normal mood - Skin Skin exam: Present: dry, intact, normal color, warm Results - Labs CBC & Chem 7: 11/18/16 08:51 11/18/16 08:51 Labs: Last Result Calcium 8.6 mg/dL (8.6-10.8) 11/17/16 04:37 Troponin I 0.28 ng/mL (0-0.03) H* 11/16/16 16:46 Entire Visit Hgb 11.3 g/dL (12.9-16.9) L D 11/17/16 04:37 Hct 35.0 % (37.5-50.1) L 11/17/16 04:37 PT 25.8 Seconds (9.4-12.1) H 11/17/16 04:37 - ABG ABG results: ABG ABG pH 7.39 pH Units (7.32-7.45) 11/16/16 10:30 ABG pCO2 47 mmHg (35-45) H 11/16/16 10:30 ABG pO2 85 mmHg (85-104) 11/16/16 10:30 ABG O2 Saturation 96 % (95-98) 11/16/16 10:30 PT/INR, D-dimer PT 25.8 Seconds (9.4-12.1) H 11/17/16 04:37 Consult Discharge Plan - Plan [facility]errals: [facility] [Primary Care Provider] - <Danny Bueno - Last Filed: 11/18/16 17:38> Date of Encounter: 11/18/16 Time of Encounter: 13:00 - Time Spent With Patient Total time spent is greater than 50% in coordination of care (as documented) at patient's floor/unit and/or counseling patient: - Constitutional Vitals: Temp Pulse Resp BP Pulse Ox 98.6 F 77 16 131/63 93 L 11/18/16 11:42 11/18/16 11:42 11/18/16 11:42 11/18/16 11:42 11/18/16 11:42 Results - Labs CBC & Chem 7: 11/18/16 08:51 11/18/16 08:51 Labs: Last Result Calcium 8.1 mg/dL (8.6-10.8) L 11/18/16 08:51 Troponin I 0.28 ng/mL (0-0.03) H* 11/16/16 16:46 Entire Visit Hgb 11.0 g/dL (12.9-16.9) L 11/18/16 08:51 Hct 33.9 % (37.5-50.1) L 11/18/16 08:51 PT 27.4 Seconds (9.4-12.1) H 11/18/16 08:51 - ABG ABG results: ABG ABG pH 7.39 pH Units (7.32-7.45) 11/16/16 10:30 ABG pCO2 47 mmHg (35-45) H 11/16/16 10:30 ABG pO2 85 mmHg (85-104) 11/16/16 10:30 ABG O2 Saturation 96 % (95-98) 11/16/16 10:30 PT/INR, D-dimer PT 27.4 Seconds (9.4-12.1) H 11/18/16 08:51 - Attending Attestation I examined this patient and my medical decision-making was reviewed with the SALES LEADER/PA/Advanced Practice Nurse/Resident Physician. I agree with the documented findings, disposition and treatment plan as described except to the extent set forth below. A problem with dysphagia persists and if patient/family wants that we can do an EGD with Botox for possible achalasia but INR has to be around 1.5
[2016-11-18 08:58] LABS: Basophils % 0.1 %; Eosinophils # 0.1 K/mcL (0.0-0.6); Eosinophils % 0.8 %; Hematocrit 33.9 % (37.5-50.1); Immature Granulocytes % 0.3 % (0-4); Lymphocytes # 0.6 K/mcL (0.6-4.6); Lymphocytes % 6.7 %; Mean Corpuscular HGB Conc 32.4 g/dL (31.6-35.5); Mean Corpuscular Hemoglobin 30.7 pg (28.0-33.3); Mean Corpuscular Volume 94.7 fL (83.0-100.0); Mean Platelet Volume 9.4 fL (9.4-12.4); Monocytes # 0.5 K/mcL (0.0-1.3); Monocytes % 5.4 %; Neutrophils # 7.5 K/mcL (1.6-8.9); Platelet Count 136 K/mcL (140-400); Red Blood Count 3.58 M/mcL (4.19-5.50); Red Cell Distribution Width 14.3 % (11.5-14.5); Segmented Neutrophils % 86.7 %
[2016-11-18 09:05] LABS: INR 2.5; Prothrombin Time 27.4 Seconds (9.4-12.1)
[2016-11-18 09:14] LABS: BUN/Creatinine Ratio 26 (6-26); Blood Urea Nitrogen 25 mg/dL (8-26); Calcium 8.1 mg/dL (8.6-10.8); Carbon Dioxide 25 mEq/L (19-29); Chloride 105 mEq/L (98-109); Glucose 100 mg/dL (70-99); Osmolality,Calculated 290 (280-300); Sodium 138 mEq/L (136-145); eGFR For African Americans > 60 (> 60); eGFR For Non-African Americans > 60 (> 60)
[2016-11-18] MEDS: risperiDONE 0.25 MG TABLET PO PRN (12:07)
--- NOTE | 2016-11-18 15:28 | Internal Med Progress Note ---
Date of Encounter: 11/18/16 Time of Encounter: 15:26 - Assessment and plan (1) Acute respiratory failure with hypoxia Current Visit: Yes Status: Acute Assessment and plan: Pt presented to ED with respiratory failure with hypoxia, sats in the 70s, with evidence of possible aspiration. Sats in the 70s on arrival CT chest showed aspiration pneumonia RLL. Currently saturating 95% on 2 L. We will continue oxygen via NC. started on clear liquids today. (2) Elevated troponin Current Visit: Yes Status: Acute Assessment and plan: Elevated troponin most likely from demand ischemia and tachycardia. (3) Esophagitis Current Visit: Yes Status: Acute Assessment and plan: will possibly need EGD as per GI. clear liquids today, NPO Past MN, planned for EGD tomm. he is high risk for worsening aspiration, already has RLL pneumonia. wall thickening and air-fluid filled areas noted in CTA exam, likely 2ndary to pre-existing diagnosis of achalasia. may need EGD once INR<2. on coumadin for PE, recent CTA is negative for PE, will hold coumadin for now in anticipation of the procedure. (4) Pulmonary embolism Current Visit: Yes Status: Acute Assessment and plan: NO PE on recent CTA. will hold coumadin for now. saturating well on NC, denies any chest pain or sob. Qualifiers: Pulmonary embolism type: other Chronicity: unspecified Acute cor pulmonale presence: without acute cor pulmonale Qualified Code(s): I26.99 - Other pulmonary embolism without acute cor pulmonale (5) Right lower lobe pneumonia Current Visit: Yes Status: Acute Assessment and plan: continue IV antibiotics, cultures are negative, will DC vancomycin and Zosyn and continue levo. will follow sputum gram stain and cx ,blood culture shows no growth. Qualifiers: Pneumonia type: aspiration pneumonia Aspiration pneumonia type: due to vomit Qualified Code(s): J69.0 - Pneumonitis due to inhalation of food and vomit (6) Dysphagia Current Visit: Yes Status: Chronic Assessment and plan: wall thickening and air-fluid filled areas noted in CTA exam, likely 2ndary to pre-existing diagnosis of achalasia. EGD w/botox to evaluate when INR is less than 2.0. Coumadin is being held. INR 2.5 today. aspiration precautions. Qualifiers: Dysphagia type: unspecified Qualified Code(s): R13.10 - Dysphagia, unspecified - Time Spent With Patient 25 - 35 minutes - Subjective Interval history: patient seen at the bedside, looks much better h/o dementia, was able to give me yes/no answers. alert and awake at the bedside. - Constitutional Vitals: Temp Pulse Resp BP Pulse Ox 98.6 F 77 16 131/63 93 L 11/18/16 11:42 11/18/16 11:42 11/18/16 11:42 11/18/16 11:42 11/18/16 11:42 General appearance: Present: cooperative, no acute distress Exam: General appearance: Present: cooperative, no acute distress Exam: General appearance: Present: cooperative, no acute distress - Eye Eye exam: Present: normal appearance, conjuntiva pink - ENT ENT exam: Present: mucous membranes moist - Respiratory Respiratory exam: Present: b/l breath sounds clear. Absent: accessory muscle use, chest wall tenderness, respiratory distress, rhonchi, stridor, wheezes, tachypnea - Cardiovascular Cardiovascular exam: Present: RRR, +S1, +S2. Absent: bradycardia, JVD, tachycardia - GI/Abdominal GI/Abdominal exam: Present: diminished bowel sounds, distended, firm, tenderness - Extremities Exam Extremities exam: Present: radial pulses palpable and symetrical. Absent: pedal edema - Expanded Upper Extremities Exam General: Present: normal inspection Internal Medicine: Result - Labs CBC & Chem 7: 11/18/16 08:51 11/18/16 08:51 Labs: Short CBC 11/18/16 Range/Units 08:51 WBC 8.7 (4.3-11.1) K/mcL Hgb 11.0 L (12.9-16.9) g/dL Hct 33.9 L (37.5-50.1) % Plt Count 136 L (140-400) K/mcL Neutrophils # 7.5 (1.6-8.9) K/mcL BMP 11/18/16 08:51 Sodium 138 Potassium 4.0 D Chloride 105 Carbon Dioxide 25 BUN 25 Creatinine 0.97 Glucose 100 H Calcium 8.1 L - ABG Interpretation ABG results: ABG ABG pH 7.39 pH Units (7.32-7.45) 11/16/16 10:30 ABG pCO2 47 mmHg (35-45) H 11/16/16 10:30 ABG pO2 85 mmHg (85-104) 11/16/16 10:30 ABG O2 Saturation 96 % (95-98) 11/16/16 10:30 PT/INR, D-dimer PT 27.4 Seconds (9.4-12.1) H 11/18/16 08:51 Consult Discharge Plan - Plan Referrals: [facility] [Primary Care Provider] -
[2016-11-18] MEDS: *HR* Heparin 5,000 UNIT/ML VIAL SQ SCH (17:41)
[2016-11-18] MEDS ORDERED: Haloperidol Lactate 5 MG/ML VIAL IVP STA (21:25)
[2016-11-18] MEDS ORDERED: *HR* LORazepam 2 MG/ML VIAL IVP STA (21:25)
[2016-11-19] MEDS ORDERED: *HR* LORazepam 2 MG/ML VIAL IVP ONE ×2 (01:46→23:46)
[2016-11-19] MEDS: Ipratropium/Albuterol Neb 3 ML IH SCH ×4 (03:38→22:20)
[2016-11-19] MEDS: Pantoprazole 40 MG VIAL IVP SCH ×2 (05:36→17:45)
[2016-11-19] MEDS: *HR* Heparin 5,000 UNIT/ML VIAL SQ SCH ×2 (05:36→17:45)
[2016-11-19 06:32] LABS: Basophils % 0.1 %; Eosinophils # 0.1 K/mcL (0.0-0.6); Eosinophils % 1.7 %; Hematocrit 34.8 % (37.5-50.1); Hemoglobin 11.2 g/dL (12.9-16.9); Immature Granulocytes % 0.7 % (0-4); Lymphocytes # 0.7 K/mcL (0.6-4.6); Lymphocytes % 9.6 %; Mean Corpuscular HGB Conc 32.2 g/dL (31.6-35.5); Mean Corpuscular Hemoglobin 29.9 pg (28.0-33.3); Mean Platelet Volume 9.9 fL (9.4-12.4); Monocytes # 0.5 K/mcL (0.0-1.3); Monocytes % 7.2 %; Platelet Count 181 K/mcL (140-400); Red Blood Count 3.74 M/mcL (4.19-5.50); Segmented Neutrophils % 80.7 %
[2016-11-19 06:35] LABS: INR 2.7; Prothrombin Time 29.6 Seconds (9.4-12.1)
[2016-11-19 06:46] LABS: BUN/Creatinine Ratio 20 (6-26); Blood Urea Nitrogen 15 mg/dL (8-26); Calcium 8.2 mg/dL (8.6-10.8); Carbon Dioxide 21 mEq/L (19-29); Chloride 108 mEq/L (98-109); Glucose 76 mg/dL (70-99); Osmolality,Calculated 288 (280-300); Sodium 139 mEq/L (136-145); eGFR For African Americans > 60 (> 60); eGFR For Non-African Americans > 60 (> 60)
[2016-11-19] MEDS: Cholecalciferol (D-3) 1,000 UNIT TABLET PO SCH (08:14)
[2016-11-19] MEDS: Finasteride 5 MG TABLET PO SCH (08:14)
[2016-11-19] MEDS: Acetaminophen 325 MG TABLET PO SCH (08:15)
[2016-11-19] MEDS: risperiDONE 0.25 MG TABLET PO SCH ×2 (08:15→21:11)
[2016-11-19] MEDS: Ondansetron 4 MG/2 ML VIAL IVP SCH (08:15)
[2016-11-19] MEDS: amLODIPine 5 MG TABLET PO SCH (08:15)
[2016-11-19] MEDS: Levofloxacin 750 MG/150 ML 750 MG/150 ML BAG IVPB SCH (08:15)
[2016-11-19] MEDS: 0.9 % Sodium Chloride 1,000 ML IVC SCH (10:30)
--- NOTE | 2016-11-19 10:39 | Gastroenterology Progress Note ---
<Viri Mendez - Last Filed: 11/19/16 10:36> Date of Encounter: 11/19/16 Time of Encounter: 09:45 - Assessment and plan (1) Acute respiratory failure with hypoxia Current Visit: Yes Status: Acute Assessment and plan: hospitalist mgmt. (2) Elevated troponin Current Visit: Yes Status: Acute Assessment and plan: Indication in medical record this is due to demand. (3) Esophagitis Current Visit: Yes Status: Acute Assessment and plan: wall thickening and air-fluid filled areas noted in CTA exam, likely 2ndary to pre-existing diagnosis of achalasia. Initial plan was to possibly do EGD w/ botox as patient INR returned to safe limit (less than 2.0). Currently INR 2.7. Based on conversation with daughter and Dr. Bueno, postpone procedure indefinitely. Unless patient condition worsens, or family changes their mind, no EGD during this hospital course. (4) Pulmonary embolism Current Visit: Yes Status: Acute Assessment and plan: on COUMADIN for PE history, INR needs to be less than 2.0 for procedure. Last blood clot 12/2015, no PEs on current CTA Qualifiers: Pulmonary embolism type: other Chronicity: unspecified Acute cor pulmonale presence: without acute cor pulmonale Qualified Code(s): I26.99 - Other pulmonary embolism without acute cor pulmonale (5) Right lower lobe pneumonia Current Visit: Yes Status: Acute Assessment and plan: hospitalist management. Qualifiers: Pneumonia type: aspiration pneumonia Aspiration pneumonia type: due to vomit Qualified Code(s): J69.0 - Pneumonitis due to inhalation of food and vomit (6) Dysphagia Current Visit: Yes Status: Chronic Assessment and plan: Hx of achalasia. Patient has hx of CVA and dementia, Speech evaluation revealed diet of puree and thin liquids to be administered by spoon only. Qualifiers: Dysphagia type: unspecified Qualified Code(s): R13.10 - Dysphagia, unspecified - Time Spent With Patient Total time spent is greater than 50% in coordination of care (as documented) at patient's floor/unit and/or counseling patient: less than 15 minutes - Subjective Interval history: Patient seen at bedside, he was resting comfortably. No complaints. - Constitutional Vitals: Temp Pulse Resp BP Pulse Ox 98.4 F 81 16 169/74 97 01/18/17 08:31 11/19/16 08:31 11/19/16 08:31 11/19/16 08:31 11/19/16 08:31 General appearance: Present: A&O X 1, pleasant, no acute distress - Head Head exam: Present: atraumatic, normocephalic - Eye Eye exam: Present: normal appearance, sclera anicteric - ENT ENT exam: Present: mucous membranes moist - Neck Neck exam general surgery: Present: normal inspection, trachea midline - Respiratory Respiratory exam: Present: rhonchi, wheezes Additional comments: easy and even - Cardiovascular Cardiovascular exam: Present: RRR, +S1, +S2 - GI/Abdominal GI/Abdominal exam: Present: normal bowel sounds, soft, no peritoneal signs - Rectal Rectal exam: Present: deferred - Extremities Exam Extremities exam: Present: warm - Neurological Exam Neurological exam: Present: no focal deficits - Psychiatric Psychiatric exam: Present: normal affect, normal mood - Skin Skin exam: Present: dry, intact, normal color, warm Results - Labs CBC & Chem 7: 11/19/16 05:22 11/19/16 05:22 Labs: Last Result Calcium 8.2 mg/dL (8.6-10.8) L 11/19/16 05:22 Troponin I 0.28 ng/mL (0-0.03) H* 11/16/16 16:46 Entire Visit Hgb 11.2 g/dL (12.9-16.9) L 11/19/16 05:22 Hct 34.8 % (37.5-50.1) L 11/19/16 05:22 PT 29.6 Seconds (9.4-12.1) H 11/19/16 05:22 - ABG ABG results: ABG ABG pH 7.39 pH Units (7.32-7.45) 11/16/16 10:30 ABG pCO2 47 mmHg (35-45) H 11/16/16 10:30 ABG pO2 85 mmHg (85-104) 11/16/16 10:30 ABG O2 Saturation 96 % (95-98) 11/16/16 10:30 PT/INR, D-dimer PT 29.6 Seconds (9.4-12.1) H 11/19/16 05:22 Consult Discharge Plan - Plan Referrals: [facility] [Outside] <Jonna Buenoed - Last Filed: 11/19/16 14:48> Date of Encounter: 11/19/16 Time of Encounter: 14:00 - Time Spent With Patient Total time spent is greater than 50% in coordination of care (as documented) at patient's floor/unit and/or counseling patient: - Constitutional Vitals: Temp Pulse Resp BP Pulse Ox 98.4 F 66 15 130/66 98 11/19/16 12:54 11/19/16 12:54 11/19/16 12:54 11/19/16 12:54 11/19/16 12:54 Results - Labs CBC & Chem 7: 11/19/16 05:22 11/19/16 05:22 Labs: Last Result Calcium 8.2 mg/dL (8.6-10.8) L 11/19/16 05:22 Troponin I 0.28 ng/mL (0-0.03) H* 11/16/16 16:46 Entire Visit Hgb 11.2 g/dL (12.9-16.9) L 11/19/16 05:22 Hct 34.8 % (37.5-50.1) L 11/19/16 05:22 PT 29.6 Seconds (9.4-12.1) H 11/19/16 05:22 - ABG ABG results: ABG ABG pH 7.39 pH Units (7.32-7.45) 11/16/16 10:30 ABG pCO2 47 mmHg (35-45) H 11/16/16 10:30 ABG pO2 85 mmHg (85-104) 11/16/16 10:30 ABG O2 Saturation 96 % (95-98) 11/16/16 10:30 PT/INR, D-dimer PT 29.6 Seconds (9.4-12.1) H 11/19/16 05:22 - Attending Attestation I examined this patient and my medical decision-making was reviewed with the [employer]ATION[employer] MGR/PA/Advanced Practice Nurse/Resident Physician. I agree with the documented findings, disposition and treatment plan as described except to the extent set forth below. Patient swallowing better. Family/daughter Procedure EGD. No need for EGD at this point but if trouble with swallowing get worse in the future then EGD with Botox an option
--- NOTE | 2016-11-19 15:26 | Internal Med Progress Note ---
Date of Encounter: 11/19/16 Time of Encounter: 15:23 - Assessment and plan (1) Acute respiratory failure with hypoxia Current Visit: Yes Status: Acute Assessment and plan: Pt presented to ED with respiratory failure with hypoxia, sats in the 70s, with evidence of possible aspiration. Sats in the 70s on arrival CT chest showed aspiration pneumonia RLL. Currently saturating 95% on 2 L. We will continue oxygen via NC. tolerating puree diet , will continue (2) Elevated troponin Current Visit: Yes Status: Acute Assessment and plan: Elevated troponin most likely from demand ischemia and tachycardia. (3) Esophagitis Current Visit: Yes Status: Acute Assessment and plan: has been tolerating pureed diet , no n/v. wall thickening and air-fluid filled areas noted in CTA exam, likely 2ndary to pre-existing diagnosis of achalasia. no need for EGD during this admission as per GI. will give referral for OP GI appt for reassesment for the need for EGD. he does remain high risk for worsening aspiration, already has RLL pneumonia. (4) Pulmonary embolism Current Visit: Yes Status: Acute Assessment and plan: NO PE on recent CTA. will hold coumadin for now. saturating well on NC, denies any chest pain or sob. Qualifiers: Pulmonary embolism type: other Chronicity: unspecified Acute cor pulmonale presence: without acute cor pulmonale Qualified Code(s): I26.99 - Other pulmonary embolism without acute cor pulmonale (5) Right lower lobe pneumonia Current Visit: Yes Status: Acute Assessment and plan: continue IV antibiotics, cultures are negative, continue levo. will follow sputum gram stain and cx ,blood culture shows no growth. Qualifiers: Pneumonia type: aspiration pneumonia Aspiration pneumonia type: due to vomit Qualified Code(s): J69.0 - Pneumonitis due to inhalation of food and vomit (6) Dysphagia Current Visit: Yes Status: Chronic Assessment and plan: wall thickening and air-fluid filled areas noted in CTA exam, likely 2ndary to pre-existing diagnosis of achalasia. EGD w/botox to evaluate when INR is less than 2.0,possible as OP. Coumadin is being held. INR 2.5 today. aspiration precautions. Qualifiers: Dysphagia type: unspecified Qualified Code(s): R13.10 - Dysphagia, unspecified - Time Spent With Patient 25 - 35 minutes - Subjective Interval history: patient seen at the bedside, clinically better , tolerating diet, no nausea or vomiting. h/o dementia, was able to give me yes/no answers. alert and awake at the bedside. - Constitutional Vitals: Temp Pulse Resp BP Pulse Ox 98.4 F 66 15 130/66 98 11/19/16 12:54 11/19/16 12:54 11/19/16 12:54 11/19/16 12:54 11/19/16 12:54 General appearance: Present: cooperative, no acute distress Exam: General appearance: Present: cooperative, no acute distress Exam: General appearance: Present: cooperative, no acute distress Exam: General appearance: Present: cooperative, no acute distress - Eye Eye exam: Present: normal appearance, conjuntiva pink - ENT ENT exam: Present: mucous membranes moist - Respiratory Respiratory exam: Present: b/l breath sounds clear. Absent: accessory muscle use, chest wall tenderness, respiratory distress, rhonchi, stridor, wheezes, tachypnea - Cardiovascular Cardiovascular exam: Present: RRR, +S1, +S2. Absent: bradycardia, JVD, tachycardia - GI/Abdominal GI/Abdominal exam: Present: diminished bowel sounds, distended, firm, tenderness - Extremities Exam Extremities exam: Present: radial pulses palpable and symetrical. Absent: pedal edema - Expanded Upper Extremities Exam General: Present: normal inspection Internal Medicine: Result - Labs CBC & Chem 7: 11/19/16 05:22 11/19/16 05:22 Labs: Short CBC 11/19/16 Range/Units 05:22 WBC 7.5 (4.3-11.1) K/mcL Hgb 11.2 L (12.9-16.9) g/dL Hct 34.8 L (37.5-50.1) % Plt Count 181 (140-400) K/mcL Neutrophils # 6.0 (1.6-8.9) K/mcL BMP 11/19/16 05:22 Sodium 139 Potassium 4.0 Chloride 108 Carbon Dioxide 21 BUN 15 D Creatinine 0.76 Glucose 76 Calcium 8.2 L - ABG Interpretation ABG results: ABG ABG pH 7.39 pH Units (7.32-7.45) 11/16/16 10:30 ABG pCO2 47 mmHg (35-45) H 11/16/16 10:30 ABG pO2 85 mmHg (85-104) 11/16/16 10:30 ABG O2 Saturation 96 % (95-98) 11/16/16 10:30 PT/INR, D-dimer PT 29.6 Seconds (9.4-12.1) H 11/19/16 05:22 Consult Discharge Plan - Plan Referrals: [facility] [Outside]
[2016-11-19] MEDS ORDERED: Acetaminophen 325 MG TABLET PO PRN (16:46)
[2016-11-19] MEDS ORDERED: Ondansetron 4 MG/2 ML VIAL IVP PRN (16:48)
[2016-11-20] MEDS: Ipratropium/Albuterol Neb 3 ML IH SCH ×4 (04:10→22:58)
[2016-11-20] MEDS: Pantoprazole 40 MG VIAL IVP SCH ×2 (05:11→17:59)
[2016-11-20] MEDS: 0.9 % Sodium Chloride 1,000 ML IVC SCH ×2 (05:11→23:05)
[2016-11-20] MEDS: *HR* Heparin 5,000 UNIT/ML VIAL SQ SCH ×2 (05:11→17:59)
[2016-11-20] MEDS: amLODIPine 5 MG TABLET PO SCH (09:27)
[2016-11-20] MEDS: risperiDONE 0.25 MG TABLET PO SCH ×2 (09:28→20:42)
[2016-11-20] MEDS: Cholecalciferol (D-3) 1,000 UNIT TABLET PO SCH (09:28)
[2016-11-20] MEDS: Finasteride 5 MG TABLET PO SCH (09:29)
[2016-11-20] MEDS: Levofloxacin 750 MG/150 ML 750 MG/150 ML BAG IVPB SCH (09:29)
--- NOTE | 2016-11-20 16:10 | Internal Med Progress Note ---
Date of Encounter: 11/20/16 Time of Encounter: 16:08 - Assessment and plan (1) Acute respiratory failure with hypoxia Current Visit: Yes Status: Acute Assessment and plan: Pt presented to ED with respiratory failure with hypoxia, sats in the 70s, with evidence of possible aspiration. Sats in the 70s on arrival CT chest showed aspiration pneumonia RLL. Currently saturating 95% on 2 L. We will continue oxygen via NC. tolerating puree diet , will continue (2) Elevated troponin Current Visit: Yes Status: Acute Assessment and plan: Elevated troponin most likely from demand ischemia and tachycardia. (3) Esophagitis Current Visit: Yes Status: Acute Assessment and plan: has been tolerating pureed diet , no n/v. wall thickening and air-fluid filled areas noted in CTA exam, likely 2ndary to pre-existing diagnosis of achalasia. no need for EGD during this admission as per GI. will give referral for OP GI appt for reassesment for the need for EGD. he does remain high risk for worsening aspiration, already has RLL pneumonia. (4) Pulmonary embolism Current Visit: Yes Status: Acute Assessment and plan: NO PE on recent CTA. will hold coumadin for now. saturating well on NC, denies any chest pain or sob. Qualifiers: Pulmonary embolism type: other Chronicity: unspecified Acute cor pulmonale presence: without acute cor pulmonale Qualified Code(s): I26.99 - Other pulmonary embolism without acute cor pulmonale (5) Right lower lobe pneumonia Current Visit: Yes Status: Acute Assessment and plan: continue IV antibiotics, cultures are negative, continue levo. will follow sputum gram stain and cx ,blood culture shows no growth. Qualifiers: Pneumonia type: aspiration pneumonia Aspiration pneumonia type: due to vomit Qualified Code(s): J69.0 - Pneumonitis due to inhalation of food and vomit (6) Dysphagia Current Visit: Yes Status: Chronic Assessment and plan: wall thickening and air-fluid filled areas noted in CTA exam, likely 2ndary to pre-existing diagnosis of achalasia. may need EGD as OP, currently patient asymptomatic. aspiration precautions. Qualifiers: Dysphagia type: unspecified Qualified Code(s): R13.10 - Dysphagia, unspecified - Time Spent With Patient 25 - 35 minutes - Subjective Interval history: patient seen at the bedside, clinically better , tolerating diet, no nausea or vomiting. h/o dementia, alert and awake at the bedside. ready for dc , awaiting social work. - Constitutional Vitals: Temp Pulse Resp BP Pulse Ox 97.4 F L 75 18 134/79 96 11/20/16 15:32 11/20/16 15:32 11/20/16 15:32 11/20/16 15:32 11/20/16 15:32 General appearance: Present: cooperative, no acute distress Exam: General appearance: Present: cooperative, no acute distress - Eye Eye exam: Present: normal appearance, conjuntiva pink - ENT ENT exam: Present: mucous membranes moist - Respiratory Respiratory exam: Present: b/l breath sounds clear. Absent: accessory muscle use, chest wall tenderness, respiratory distress, rhonchi, stridor, wheezes, tachypnea - Cardiovascular Cardiovascular exam: Present: RRR, +S1, +S2. Absent: bradycardia, JVD, tachycardia - GI/Abdominal GI/Abdominal exam: Present: diminished bowel sounds, distended, firm, tenderness - Extremities Exam Extremities exam: Present: radial pulses palpable and symetrical. Absent: pedal edema - Expanded Upper Extremities Exam General: Present: normal inspection Internal Medicine: Result - Labs CBC & Chem 7: 11/19/16 05:22 11/19/16 05:22 - ABG Interpretation ABG results: ABG ABG pH 7.39 pH Units (7.32-7.45) 11/16/16 10:30 ABG pCO2 47 mmHg (35-45) H 11/16/16 10:30 ABG pO2 85 mmHg (85-104) 11/16/16 10:30 ABG O2 Saturation 96 % (95-98) 11/16/16 10:30 PT/INR, D-dimer PT 29.6 Seconds (9.4-12.1) H 11/19/16 05:22 Consult Discharge Plan - Plan Referrals: [facility] [Outside]
[2016-11-21] MEDS: Ipratropium/Albuterol Neb 3 ML IH SCH ×2 (04:16→11:18)
[2016-11-21] MEDS: Pantoprazole 40 MG VIAL IVP SCH (06:27)
[2016-11-21] MEDS: *HR* Heparin 5,000 UNIT/ML VIAL SQ SCH (06:27)
[2016-11-21] MEDS: Finasteride 5 MG TABLET PO SCH (08:37)
[2016-11-21] MEDS: Cholecalciferol (D-3) 1,000 UNIT TABLET PO SCH (08:37)
[2016-11-21] MEDS: risperiDONE 0.25 MG TABLET PO SCH (08:37)
[2016-11-21] MEDS: Levofloxacin 750 MG/150 ML 750 MG/150 ML BAG IVPB SCH (08:37)
[2016-11-21] MEDS: amLODIPine 5 MG TABLET PO SCH (08:38)
[2016-11-21 10:35] VITALS: BP 109/66
--- NOTE | 2016-11-21 10:54 | Discharge Summary ---
Date of Encounter: 11/21/16 Time of Encounter: 10:49 - Discharge Diagnosis (1) Acute respiratory failure with hypoxia Priority: Primary Status: Acute (2) Elevated troponin Priority: Primary Status: Acute (3) Esophagitis Priority: Primary Status: Acute (4) Pulmonary embolism Priority: Secondary Status: Acute Qualifiers: Pulmonary embolism type: other Chronicity: unspecified Acute cor pulmonale presence: without acute cor pulmonale Qualified Code(s): I26.99 - Other pulmonary embolism without acute cor pulmonale (5) Right lower lobe pneumonia Priority: Primary Status: Acute Qualifiers: Pneumonia type: aspiration pneumonia Aspiration pneumonia type: due to vomit Qualified Code(s): J69.0 - Pneumonitis due to inhalation of food and vomit (6) Dysphagia Priority: Primary Status: Chronic Qualifiers: Dysphagia type: unspecified Qualified Code(s): R13.10 - Dysphagia, unspecified - Discharge Medications Prescriptions: Levofloxacin [Levaquin] 500 mg PO DAILY #2 tablet Home Medications: Acetaminophen [Tylenol] 975 mg PO Q8HR 11/16/16 [History] Amlodipine [Norvasc] 5 mg PO DAILY 11/16/16 [History] Atorvastatin [Lipitor] 10 mg PO HS 11/16/16 [History] Cholecalciferol (D-3) [Vitamin D] 4,000 units PO DAILY 11/16/16 [History] Donepezil [Aricept] 10 mg PO HS 11/16/16 [History] Escitalopram [Lexapro] 10 mg PO HS 11/16/16 [History] Finasteride [Proscar] 5 mg PO DAILY 11/16/16 [History] Furosemide [Lasix] 20 mg PO DAILY 11/16/16 [History] Ipratropium/Albuterol Neb [Duoneb] 3 ml IH Q6HR 11/16/16 [History] MOM Conc [MILK OF MAGNESIA conc] 30 ml PO DAILY PRN 11/16/16 [History] Memantine [Namenda] 10 mg PO BID 11/16/16 [History] Omeprazole [PriLOSEC] 20 mg PO BID 11/16/16 [History] Polyethylene Glycol 3350 [MiraLAX] 17 gm PO DAILY 11/16/16 [History] Potassium Chloride [K-Tab ER] 20 meq PO DAILY 11/16/16 [History] RisperiDONE [Risperidone] 0.25 mg PO Q12HR PRN 11/16/16 [History] RisperiDONE [Risperidone] 0.25 mg PO QAM 11/16/16 [History] RisperiDONE [Risperidone] 0.5 mg PO HS 11/16/16 [History] Sennosides/Docusate Sodium [Senna-Docusate Sodium Tablet] 2 tab PO HS PRN [History] Warfarin [Coumadin] 5 mg PO MOFR 11/16/16 [History] Warfarin [Coumadin] 6 mg PO SUTUWETHSA 11/16/16 [History] Levofloxacin [Levaquin] 500 mg PO DAILY #2 tablet 11/21/16 [Rx] Allergies/Adverse Reactions: Allergies No Known Allergies Allergy (Verified 11/16/16 05:15) Date of admission: 11/16/16 06:44 Primary care physician: PCP [place] Consults: 11/16/16 09:20 Consult to Nurse Navigator [CONS] Routine Comment: 11/16/16 09:40 Consult to Gastroenterology [CONS] Routine Consulting Provider: Gastroenterletty Collins Reason for Consult: Esophagitis/aspiration Call Completed: No 11/16/16 12:04 Consult to Speech Therapy [CONS] Routine Comment: Evaluate, develop and implement POC Reason for Consult: possible aspiration. Call Completed: Yes 11/18/16 23:29 Consult to Pattern Vault Clerk [CONS] Routine Reason for SW Consult: [facility] Discharging clinician: Shane Garcia Anticipated date of discharge: 11/21/16 - Patient Status Disposition: Transfer SNF Condition: Fair Functional capacity at discharge: bed bound Overall status at discharge: patient is back to baseline - Discharge Instructions Follow Up With: [facility] [Outside] - Diet and Activity Activity: as per physical therapy Diet: other (pureed diet) Interval History: 86 Y/O M with Dementia, resident of [place] [facility] facility, HTN, PE on warfarin, HLD, CVA Found to be in respiratory distress in [place] and transferred here. Poor historian due to Dementia but per ED note had brownish sputum in his mouth at time of presentation. Physical examination revealed tachycardia, tachypnea, afebrile, O2 sat 94% on 4L of O2, cachectic, chronically ill-looking elderly man, in mild respiratory distress. Chest revealed bilateral rhonchi, worse in RML and RLL. No wheezes. Hear t sounds S1, S2 only, no m/g/r. Abdomen is tender++, no guarding, bowel sounds present, no edema of lower extremities. Labs and Imaging reviewed: No leukocytosis, CBC unremarkable, Lactic acid 2.4, Troponin elevated at 0.07, INR 1.7. BNP/UA WNL. CXR with RLL pneumonia. CTA revealed no PE, aspiration PNA, possible mild pulmonary edema, esophagitis, EKG with sinus tachycardia VR 126, non-specific T wave changes not different from prior EKG. Head CT: No acute intracranial abnormalities Assessment/Plan: Acute hypoxemic respiratory failure secondary to aspiration pneumonia/HCAP, PSI score >130, Lactic acidosis, Elevated troponins possibly from demand ischemia, Suspected dysphagia, Esophagitis, Hx of PE on Warfarin. HE was initially treated with Vanco and Levofloxacin, and Zosyn for anaerobic coverage, HE improved clinically on IV antibiotics. blood cx was negtaive, he reminaed afebrile. antibiotics was de- escalated to lovofloxacin. GI was consulted for the esophagitis and wall thickening and air-fluid filled areas noted in CTA exam, likely 2ndary to pre-existing diagnosis of achalasia.initially planned for EGD for possibel botox, however pt. imporved with no nausea or vomiting and was safely tolearating pureed diet. thus this has been post poned indefinitely. his coumain was held for possible EGD initially, CTA did not show any PE. however will leave to PCP to decide on stopping the coumadin on his next follow up. [facility] is [facility] in stable condition. Hospital course: Mr. Alonso is a 86 year old male Time spent discussing smoking cessation with patient: more than 10 minutes - Time Spent with Patient Total time spent providing and/or coordinating discharge services: Greater than 30 minutes - Constitutional Vitals: Temp Pulse Resp BP Pulse Ox 99.8 F H 78 18 109/66 98 11/21/16 10:25 11/21/16 10:25 11/21/16 10:25 11/21/16 10:25 11/21/16 10:25 General appearance: Present: cooperative, no acute distress Exam: General appearance: Present: A&O X 1, disheveled, mild distress - Head Head exam: Present: atraumatic, normocephalic - Eye Eye exam: Present: normal appearance, sclera anicteric - ENT ENT exam: Present: mucous membranes moist - Neck Neck exam general surgery: Present: normal inspection, trachea midline - Respiratory Respiratory exam: Present: CTAB - Cardiovascular Cardiovascular exam: Present: RRR, +S1, +S2 - GI/Abdominal GI/Abdominal exam: Present: normal bowel sounds, soft, no peritoneal signs - Rectal Rectal exam: Present: deferred - Extremities Exam Extremities exam: Present: warm - Neurological Exam Neurological exam: Present: altered - Psychiatric Psychiatric exam: Present: flat affect - Skin Skin exam: Present: dry, intact, normal color, warm
--- NOTE | 2016-11-21 10:58 | Physician Discharge Referral ---
ExtendedCare Referral Info Transfer To: ECF Provider in Charge: gigi baugh Institutional Level of Care: Intermediate - MR - Diagnosis (1) Acute respiratory failure with hypoxia Status: Acute (2) Elevated troponin Status: Acute (3) Esophagitis Status: Acute (4) Pulmonary embolism Status: Acute (5) Right lower lobe pneumonia Status: Acute (6) Dysphagia Status: Chronic - Transfer Medications Prescriptions: Levofloxacin [Levaquin] 500 mg PO DAILY #2 tablet Home Medications: Acetaminophen [Tylenol] 975 mg PO Q8HR 11/16/16 [History] Amlodipine [Norvasc] 5 mg PO DAILY 11/16/16 [History] Atorvastatin [Lipitor] 10 mg PO HS 11/16/16 [History] Cholecalciferol (D-3) [Vitamin D] 4,000 units PO DAILY 11/16/16 [History] Donepezil [Aricept] 10 mg PO HS 11/16/16 [History] Escitalopram [Lexapro] 10 mg PO HS 11/16/16 [History] Finasteride [Proscar] 5 mg PO DAILY 11/16/16 [History] Furosemide [Lasix] 20 mg PO DAILY 11/16/16 [History] Ipratropium/Albuterol Neb [Duoneb] 3 ml IH Q6HR 11/16/16 [History] MOM Conc [MILK OF MAGNESIA conc] 30 ml PO DAILY PRN 11/16/16 [History] Memantine [Namenda] 10 mg PO BID 11/16/16 [History] Omeprazole [PriLOSEC] 20 mg PO BID 11/16/16 [History] Polyethylene Glycol 3350 [MiraLAX] 17 gm PO DAILY 11/16/16 [History] Potassium Chloride [K-Tab ER] 20 meq PO DAILY 11/16/16 [History] RisperiDONE [Risperidone] 0.25 mg PO Q12HR PRN 11/16/16 [History] RisperiDONE [Risperidone] 0.25 mg PO QAM 11/16/16 [History] RisperiDONE [Risperidone] 0.5 mg PO HS 11/16/16 [History] Sennosides/Docusate Sodium [Senna-Docusate Sodium Tablet] 2 tab PO HS PRN [History] Warfarin [Coumadin] 5 mg PO MOFR 11/16/16 [History] Warfarin [Coumadin] 6 mg PO SUTUWETHSA 11/16/16 [History] Levofloxacin [Levaquin] 500 mg PO DAILY #2 tablet 11/21/16 [Rx] Allergies/Adverse Reactions: Allergies No Known Allergies Allergy (Verified 11/16/16 05:15) - Respiratory Orders Oxygen / L per min (2l) Smoking Cessation: Smoking cessation has been advised. For more information, call the PT [facility] Quit Line at [phone]. - Advance Directives Code Status: DNR-Arrest - Mobility Orders Chair - Rehabiliation Orders Rehab Potential: Fair Rehab Orders: Evaluation for Physical Therapy, Evaluation for Occupational Therapy - Treatments Skin tear care topically daily PRN per policy - Diet Orders Pureed CERTIFICATION: I certify that the transfer of the above named patient to an Extended Care Facility is necessary for the continuing treatment of the diagnosis listed. The above information is true and accurate reflection of patient's current condition. Confidential - Redisclosure prohibited without a patient's written consent.
[2016-11-22] MEDS ORDERED: levoFLOXacin 250 MG TABLET PO SCH (09:00)
[2016-11-22] MEDS ORDERED: levoFLOXacin 500 MG TABLET PO SCH (09:00)
== END 2016-11-21 12:15 | DRG 189 ==
LOC: EMEROO 05:05 → 3ANU 06:44 → SUATTDRO 06:44 → 3ANU 08:10
PROVIDERS: ADMIT Internal Medicine; ATTEND Internal Medicine Endocrinology, Diabetes & Metabolism

== ENCOUNTER 2017-03-28 03:38 | Inpatient (IN) ==
[2017-03-28] MEDS ORDERED: Ipratropium/Albuterol Neb 3 ML IH ONE (03:41)
[2017-03-28] MEDS ORDERED: methylPREDNISolone 125 MG/2 ML VIAL IVP ONE (03:50)
--- NOTE | 2017-03-28 03:54 | Emergency Department Note ---
Disposition Clinical Impression: Pneumonia Qualifiers: Pneumonia type: due to unspecified organism Laterality: bilateral Lung location : lower lobe of lung Qualified Code(s): J18.9 - Pneumonia, unspecified organism Sepsis Qualifiers: Sepsis type: sepsis due to unspecified organism Qualified Code(s): A41.9 - Sepsis, unspecified organism Disposition: Admitted As Inpatient Condition: Good Time of Disposition: 05:27 General Adult HPI - General Chief complaint: ED Shortness of Breath/Dyspnea Stated complaint: PORTILLO Time Seen by Provider: 03/28/17 03:41 Source: EMS Limitations: altered mental status, age, other Nursing Notes Reviewed: Yes Vital Signs Reviewed: Yes - History of Present Illness HPI Narrative: Pt is a resident at the [place] [facility]. EMS was called for a low oxygen saturation. He was in the 50s initially. EMS placed him on a nonrebreather. He was placed on a nonrebreather. This brought him up to the 80s. Pain Scale: 0 - Related Data Home Medications Medication Instructions Recorded Confirmed Acetaminophen [Tylenol] 975 mg PO Q8HR 11/16/16 11/16/16 Atorvastatin [Lipitor] 10 mg PO HS 11/16/16 11/16/16 Cholecalciferol (D-3) [Vitamin D] 4,000 units PO DAILY 11/16/16 11/16/16 Donepezil [Aricept] 10 mg PO HS 11/16/16 11/16/16 Escitalopram [Lexapro] 10 mg PO HS 11/16/16 11/16/16 Finasteride [Proscar] 5 mg PO DAILY 11/16/16 11/16/16 Furosemide [Lasix] 20 mg PO DAILY 11/16/16 11/16/16 Ipratropium/Albuterol Neb [Duoneb] 3 ml IH Q6HR 11/16/16 11/16/16 MOM Conc [MILK OF MAGNESIA conc] 30 ml PO DAILY PRN 11/16/16 11/16/16 Memantine [Namenda] 10 mg PO BID 11/16/16 11/16/16 Omeprazole [PriLOSEC] 20 mg PO BID 11/16/16 11/16/16 Polyethylene Glycol 3350 [MiraLAX] 17 gm PO DAILY 11/16/16 11/16/16 Potassium Chloride [K-Tab ER] 20 meq PO DAILY 11/16/16 11/16/16 Sennosides/Docusate Sodium 2 tab PO HS PRN 11/16/16 11/16/16 [Senna-Docusate Sodium Tablet] Warfarin [Coumadin] 5 mg PO MOFR 11/16/16 11/16/16 Warfarin [Coumadin] 6 mg PO SUTUWETHSA 11/16/16 11/16/16 amLODIPine [Norvasc] 5 mg PO DAILY 11/16/16 11/16/16 risperiDONE [Risperidone] 0.25 mg PO Q12HR PRN 11/16/16 11/16/16 risperiDONE [Risperidone] 0.25 mg PO QAM 11/16/16 11/16/16 risperiDONE [Risperidone] 0.5 mg PO HS 11/16/16 11/16/16 Previous Rx's Medication Instructions Recorded levoFLOXacin [Levaquin] 500 mg PO DAILY #2 tablet 11/21/16 Allergies Allergy/AdvReac Type Severity Reaction Status Date / Time No Known Allergies Allergy Verified 11/16/16 05:15 Limitations: ROS unobtainable due to patients medical condition Past Medical History - Past Medical History Medical history: Reports: CVA, dementia, hyperlipidemia, hypertension, pulmonary embolus, other Psychiatric history: Reports: PTSD - Social History Smoking Status: Never smoker Smokeless Tobacco Status: No Alcohol use: Reports: none Drug use: Reports: none Physical Exam - General Limitations: altered mental status, age, other General appearance: lethargic, obtunded, in distress - Head Head exam: atraumatic, normocephalic, normal inspection - Eye Eye exam: Present: normal appearance, PERRL, EOMI, other (She has a healing hematoma to the right forehead as well as lower orbital ecchymosis that is healing.). Absent: scleral icterus - ENT ENT exam: normal exam, normal oropharynx, mucous membranes moist - Neck Neck exam: Present: normal inspection, full ROM, trachea midline. Absent: tenderness, meningismus - Chest Chest inspection: Present: normal inspection, symmetric chest wall rise - Respiratory Respiratory exam: Present: respiratory distress, wheezes (Bilaterally), other ( Patient has a lot of upper airway noises.) - Cardiovascular Cardiovascular exam: Present: normal rhythm, tachycardia, normal heart sounds - Abdominal Exam Abdominal exam: Present: soft, Non-Tender, normal bowel sounds. Absent: tenderness, distention, guarding, rebound, organomegaly - Extremities Exam Extremities exam: Present: normal inspection, normal capillary refill. Absent: tenderness, pedal edema - Neurological Exam Neurological exam: Present: alert (To verbal stimuli. Patient is not verbalizing anything at this time. However he does open his eyes and look around the room.) - Psychiatric Psychiatric exam: Present: normal affect, normal mood - Skin Skin exam: Present: warm, dry, intact, normal color. Absent: rash, cyanosis, diaphoresis Course Course Narrative: [facility] The report was the patient saw oxygen saturation had declined significantly tonight. They report down to the 50s. EMS placed him on 4 L of oxygen and Into the 80s. On arrival to our bed 21 the patient is in respiratory distress and is nonverbal. He sounds like he has a lot of upper airway secretions that he is attempting to clear. Oxygen saturation is in the low 80s on [address] patient on BiPAP. The cardiac workup and a chest x-ray. Patient does not appear fluid overloaded at this time. After he was placed on BiPAP his lung sounds sound tight diffusely. I do not appreciate any rails. He does not have any pedal edema. We will give patient 3 duo nebs and landed BiPAP. He is tachycardic however we will withhold a fluid challenge due to patient's condition at this time. We will likely admit patient to hospital. - Reevaluation(s) Reevaluation #1: Patient is appears to be septic with a pneumonia as the source. We will admit patient and begin him on antibiotics at this time. We are beginning to rehydrate him slowly. We are initially very concerned for possible CHF exacerbation. However I do not believe that this is a course of this time. I am still concerned about overloading patient with fluids we will begin slow. Patient is alert and looking about the room. He is nonverbal. Patient is a DNR CCA. After BiPAP he does not appear in any respiratory distress. It is noted the patient had a history of a pulmonary embolism in November however reading the report for the CTA was read as no PE. Time: 04:49 - Consultations Consultation #1: Dr. Wilson accepted patient in stable condition. Time: 05:21 Vital Signs Temperature 98.6 F 03/28/17 03:42 Pulse Rate 82 03/28/17 03:42 Respiratory Rate 40 03/28/17 03:42 Blood Pressure 182/87 03/28/17 03:42 O2 Sat by Pulse Oximetry 82 03/28/17 03:42 Temperature 98.6 F 03/28/17 03:48 Pulse Rate 88 03/28/17 05:32 Respiratory Rate 18 03/28/17 05:32 Blood Pressure 112/63 03/28/17 05:32 O2 Sat by Pulse Oximetry 99 03/28/17 05:32 Oxygen Delivery Oxygen Delivery Bipap Medical Decision Making - Medical Records Medical records reviewed: Yes I reviewed the patient's medical records. - Lab Data Lab results reviewed: Yes I reviewed the patient's lab results. Result diagrams: 03/28/17 03:53 03/28/17 03:53 Lab Results 03/28/17 03/28/17 03/28/17 Range/Units 03:53 03:53 03:53 WBC 13.4 H (4.3-11.1) K/mcL RBC 4.19 (4.19-5.50) M/mcL Hgb 11.9 L (12.9-16.9) g/dL Hct 39.1 (37.5-50.1) % MCV 93.3 (83.0-100.0) fL MCH 28.4 (28.0-33.3) pg MCHC 30.4 L (31.6-35.5) g/dL RDW 14.8 H (11.5-14.5) % Plt Count 283 (140-400) K/mcL MPV 9.0 L (9.4-12.4) fL Immature Gran % 0.6 (0-4) % Seg Neutrophils % 69.9 % Lymphocytes % 18.3 % Monocytes % 5.0 % Eosinophils % 6.1 % Basophils % 0.1 % Neutrophils # 9.3 H (1.6-8.9) K/mcL Lymphocytes # 2.4 (0.6-4.6) K/mcL Monocytes # 0.7 (0.0-1.3) K/mcL Eosinophils # 0.8 H (0.0-0.6) K/mcL Basophils # 0.0 (0.0-0.2) K/mcL PT (9.4-12.1) Seconds INR APTT (26.0-36.0) Seconds ABG pH (7.32-7.45) pH Units ABG pCO2 (35-45) mmHg ABG pO2 (85-104) mmHg ABG HCO3 (21-27) mEQ/L ABG Total CO2 (20-26) mEq/L ABG O2 Saturation (95-98) % ABG Base Excess (-2.0 to 3.0) mEq/L Blood Gas Modality Inspired O2 % Sodium 139 (136-145) mEq/L Potassium 4.3 (3.5-4.5) mEq/L Chloride 103 (98-109) mEq/L Carbon Dioxide 25 (19-29) mEq/L BUN 23 (8-26) mg/dL Creatinine 1.12 (0.72-1.25) mg/dL Est GFR ( Amer) > 60 (> 60) Est GFR (Non-Af Amer) > 60 (> 60) BUN/Creatinine Ratio 21 (6-26) Glucose 188 H (70-99) mg/dL Calculated Osmolality 297 (280-300) Lactic Acid 2.9 H (0.5-2.2) mmol/L Calcium 9.0 (8.6-10.8) mg/dL Troponin I (0-0.03) ng/mL B-Natriuretic Peptide (0-100) pg/mL 03/28/17 03/28/17 03/28/17 Range/Units 03:53 03:53 03:53 WBC (4.3-11.1) K/mcL RBC (4.19-5.50) M/mcL Hgb (12.9-16.9) g/dL Hct (37.5-50.1) % MCV (83.0-100.0) fL MCH (28.0-33.3) pg MCHC (31.6-35.5) g/dL RDW (11.5-14.5) % Plt Count (140-400) K/mcL MPV (9.4-12.4) fL Immature Gran % (0-4) % Seg Neutrophils % % Lymphocytes % % Monocytes % % Eosinophils % % Basophils % % Neutrophils # (1.6-8.9) K/mcL Lymphocytes # (0.6-4.6) K/mcL Monocytes # (0.0-1.3) K/mcL Eosinophils # (0.0-0.6) K/mcL Basophils # (0.0-0.2) K/mcL PT 22.6 H (9.4-12.1) Seconds INR 2.1 APTT 35.3 (26.0-36.0) Seconds ABG pH (7.32-7.45) pH Units ABG pCO2 (35-45) mmHg ABG pO2 (85-104) mmHg ABG HCO3 (21-27) mEQ/L ABG Total CO2 (20-26) mEq/L ABG O2 Saturation (95-98) % ABG Base Excess (-2.0 to 3.0) mEq/L Blood Gas Modality Inspired O2 % Sodium (136-145) mEq/L Potassium (3.5-4.5) mEq/L Chloride (98-109) mEq/L Carbon Dioxide (19-29) mEq/L BUN (8-26) mg/dL Creatinine (0.72-1.25) mg/dL Est GFR ( Amer) (> 60) Est GFR (Non-Af Amer) (> 60) BUN/Creatinine Ratio (6-26) Glucose (70-99) mg/dL Calculated Osmolality (280-300) Lactic Acid (0.5-2.2) mmol/L Calcium (8.6-10.8) mg/dL Troponin I 0.01 (0-0.03) ng/mL B-Natriuretic Peptide 31 (0-100) pg/mL 03/28/17 Range/Units 04:12 WBC (4.3-11.1) K/mcL RBC (4.19-5.50) M/mcL Hgb (12.9-16.9) g/dL Hct (37.5-50.1) % MCV (83.0-100.0) fL MCH (28.0-33.3) pg MCHC (31.6-35.5) g/dL RDW (11.5-14.5) % Plt Count (140-400) K/mcL MPV (9.4-12.4) fL Immature Gran % (0-4) % Seg Neutrophils % % Lymphocytes % % Monocytes % % Eosinophils % % Basophils % % Neutrophils # (1.6-8.9) K/mcL Lymphocytes # (0.6-4.6) K/mcL Monocytes # (0.0-1.3) K/mcL Eosinophils # (0.0-0.6) K/mcL Basophils # (0.0-0.2) K/mcL PT (9.4-12.1) Seconds INR APTT (26.0-36.0) Seconds ABG pH 7.30 L (7.32-7.45) pH Units ABG pCO2 60 H (35-45) mmHg ABG pO2 180 H (85-104) mmHg ABG HCO3 29.5 H (21-27) mEQ/L ABG Total CO2 31.3 H (20-26) mEq/L ABG O2 Saturation 100 H (95-98) % ABG Base Excess 1.9 (-2.0 to 3.0) mEq/L Blood Gas Modality BIPAP Inspired O2 100 % Sodium (136-145) mEq/L Potassium (3.5-4.5) mEq/L Chloride (98-109) mEq/L Carbon Dioxide (19-29) mEq/L BUN (8-26) mg/dL Creatinine (0.72-1.25) mg/dL Est GFR ( Amer) (> 60) Est GFR (Non-Af Amer) (> 60) BUN/Creatinine Ratio (6-26) Glucose (70-99) mg/dL Calculated Osmolality (280-300) Lactic Acid (0.5-2.2) mmol/L Calcium (8.6-10.8) mg/dL Troponin I (0-0.03) ng/mL B-Natriuretic Peptide (0-100) pg/mL - Radiology Data Radiology results reviewed: Yes I reviewed the patient's radiology results. Chest X-Ray 03/28/17 03:41 IMPRESSION: Bibasilar airspace disease could represent atelectasis, aspiration or pneumonia D/ / Jose Viramontes MD / Jose Viramontes MD Interpreting Provider: Jose Viramontes MD - EKG Data EKG #1 EKG attestation: Yes I reviewed and interpreted this EKG. EKG results narrative: Sinus tachycardia at a rate of 101. OR interval is 143. QRS duration is 85. QT is 359. QTC is 417. No signs of acute ischemia. No significant changes from previous EKG dated 11/16/2016. Critical Care Time Critical Care Time: Yes Total Critical Care Time: 60 Attestation: Critical care performed: Time is exclusive of separately billable procedures. Time includes: direct patient care, patient reassessment, coordination of patient care, interpretation of data (laboratory data, radiology data, and respiratory data), review of patient's medical records, medical consultation and documentation of patient care. Procedures included in critical care time: Procedures excluded from critical care time: Attestation Statement - Attestation Attestation: I, Wilbur Lazaro MD, personally evaluated this patient and discussed their management with the resident physician. I reviewed the resident's note and agree with the documented findings, medical decision making, and plan of care. 86-year-old male who presents to the emergency department by ambulance from a [facility]-care facility. Patient was apparently found during the night with hypoxia and respiratory distress. Apparently he has decreased responsiveness but patient's baseline mental status is unknown. On arrival here the patient in moderate respiratory distress with coarse upper airway congestion and rattling. He is on oxygen at 4 L/m nasal cannula and his oxygen saturation is in the mid 80s. Patient opens his eyes to verbal but does not answer questions. Patient was suctioned by respiratory therapy with significant improvement in the upper airway congestion and noisy respirations. He is placed on BiPAP and his oxygen saturation improved to 100%. On examination patient is a well-developed well-nourished elderly male in moderate respiratory distress. No cyanosis or diaphoresis. Decreased responsiveness. Breath sounds are decreased bilaterally. Heart regular and tachycardic. Abdomen soft with normal bowel sounds. Trace pedal edema. Labs reviewed. Chest x-ray shows bibasilar airspace disease consistent with atelectasis, aspiration, or pneumonia. No acute changes on EKG. The hospitalist, Dr. Wilson, was consulted and accepted the admission of the patient.
[2017-03-28 04:03] LABS: Basophils % 0.1 %; Eosinophils # 0.8 K/mcL (0.0-0.6); Eosinophils % 6.1 %; Hematocrit 39.1 % (37.5-50.1); Hemoglobin 11.9 g/dL (12.9-16.9); Immature Granulocytes % 0.6 % (0-4); Lymphocytes # 2.4 K/mcL (0.6-4.6); Lymphocytes % 18.3 %; Mean Corpuscular HGB Conc 30.4 g/dL (31.6-35.5); Mean Corpuscular Hemoglobin 28.4 pg (28.0-33.3); Mean Corpuscular Volume 93.3 fL (83.0-100.0); Monocytes # 0.7 K/mcL (0.0-1.3); Neutrophils # 9.3 K/mcL (1.6-8.9); Platelet Count 283 K/mcL (140-400); Red Blood Count 4.19 M/mcL (4.19-5.50); Red Cell Distribution Width 14.8 % (11.5-14.5); Segmented Neutrophils % 69.9 %
[2017-03-28 04:09] LABS: INR 2.1; Prothrombin Time 22.6 Seconds (9.4-12.1)
[2017-03-28 04:12] LABS: Activated Partial Thrombo Time 35.3 Seconds (26.0-36.0)
[2017-03-28 04:16] LABS: BUN/Creatinine Ratio 21 (6-26); Blood Urea Nitrogen 23 mg/dL (8-26); Carbon Dioxide 25 mEq/L (19-29); Chloride 103 mEq/L (98-109); Glucose 188 mg/dL (70-99); Osmolality,Calculated 297 (280-300); Potassium 4.3 mEq/L (3.5-4.5); Sodium 139 mEq/L (136-145); eGFR For African Americans > 60 (> 60); eGFR For Non-African Americans > 60 (> 60)
[2017-03-28 04:23] LABS: ABG Base Excess 1.9 mEq/L (-2.0 to 3.0); ABG HCO3 29.5 mEQ/L (21-27); ABG Oxygen Saturation 100 % (95-98); ABG PCO2 60 mmHg (35-45); ABG PO2 180 mmHg (85-104); ABG TCO2 31.3 mEq/L (20-26)
[2017-03-28 04:24] LABS: Blood Gas FiO2 100 %
[2017-03-28] MEDS ORDERED: Ringers Solution, Lactated 500 ML IVC ONE (04:46)
[2017-03-28] MEDS ORDERED: Azithromycin 500 MG in D5% in Water 250 ML IVPB ONE (04:50)
[2017-03-28] MEDS ORDERED: Naloxone 0.4 MG/ML INJ IVP PRN (08:33)
[2017-03-28] MEDS ORDERED: Ondansetron 4 MG/2 ML VIAL IVP PRN (08:33)
[2017-03-28] MEDS ORDERED: Acetaminophen 325 MG TABLET PO PRN (08:33)
--- NOTE | 2017-03-28 08:47 | Internal Med History&Physical ---
Date of Encounter: 03/28/17 Time of Encounter: 08:43 Assessment and Plan (1) Acute respiratory failure with hypoxia Current visit: No Status: Acute Acute metabolic encephalopathy from Acute hypoxic hypercapnic respiratory failure secondary to acute COPD exacerbation due to severe sepsis from healthcare associated pneumonia present upon admission in combination with acute CHF exacerbation diastolic versus systolic Continue vancomycin, Levaquin and cefepime DuoNeb's BiPAP and Solu-Medrol IV Hold Lasix and hold IV fluids at this moment, the patient sounds very congested , consider Lasix IV if his blood pressure remains stable Strict I's and O's and daily weight Send the CT scan of the head The patient will be admitted as inpatient, expected stay more than 2 midnights. DNR CC arrest. Time spent on this critical care assessment 40 minutes. Protonix IV for GI prophylaxis and subcutaneous heparin for DVT prophylaxis The patient has a guarded prognosis (2) Sepsis Current visit: Yes Status: Acute Qualifiers: Sepsis type: sepsis due to unspecified organism Qualified Code(s): A41.9 - Sepsis, unspecified organism (3) CHF (congestive heart failure) Current visit: Yes Status: Acute Systolic versus diastolic Order an echocardiogram May start Lasix if blood pressure remains stable Qualifiers: Congestive heart failure type: unspecified congestive heart failure type Congestive heart failure chronicity: acute on chronic Qualified Code(s): I50.9 - Heart failure, unspecified (4) Dementia Current visit: Yes Status: Acute Qualifiers: Dementia type: Alzheimer's disease Alzheimer's disease onset: other onset Dementia behavioral disturbance: without behavioral disturbance Qualified Code(s): G30.8 - Other Alzheimer's disease; F02.80 - Dementia in other diseases classified elsewhere without behavioral disturbance (5) Pulmonary embolism Current visit: No Status: Acute Unknown when the patient developed pulmonary emboli as the last CT scan of the chest back in November did not show any pulmonary emboli We [facility] possibility of stopping war[facility]in Dose warfarin per pharmacy for now and recheck INR in the morning Qualifiers: Pulmonary embolism type: other Chronicity: unspecified Acute cor pulmonale presence: without acute cor pulmonale Qualified Code(s): I26.99 - Other pulmonary embolism without acute cor pulmonale (6) Esophagitis Current visit: No Status: Acute Continue Protonix IV (7) Hypertension Current visit: Yes Status: Acute Qualifiers: Hypertension type: essential hypertension Qualified Code(s): I10 - Essential (primary) hypertension Internal Medicine - H&P: HPI Chief complaint: Shortness of breath Admitted From: Emergency Dept History of present illness: Mr. Alonso is a 86 year old male with a past medical history of pulmonary emboli in the past on warfarin, PTSD, GERD, severe dementia, discharged from this hospital on 11/21/2016, was transferred from the [place] alf as he was saturating in the 50s. EMS put him on the nonrebreather and was able to bring saturation up to the 80s.. Patient is completely obtunded at the moment, apparently his nonverbal at baseline. White blood cell count is 13.4 respiratory rate 40 heart rate 106 blood pressure 182/87 glucose 188 INR 2.1 lactic acid was 2.9 came down to 2.3 pH 7.3 PCO2 60 PO2 180 on BiPAP. Chest x- ray shows bilateral airspace opacities/possible pneumonia. Was given azithromycin and Rocephin and Solu-Medrol in the emergency room. Unable to obtain more history from the patient Past Med Surg Social Fam HX - Past Medical History Medical history: CHF (Diastolic versus systolic, no ejection fraction recorded in our system), CVA, dementia, hyperlipidemia, hypertension, pulmonary embolus ( On warfarin, last CT scan from November of this year did not show any pulmonary emboli), other (PTSD, emphysema, dysphagia, pneumonia, BPH) Psychiatric history: PTSD - Past Surgical History Surgical History: no surgical history - Social History Smoking Status: Never smoker Smokeless Tobacco Status: No Alcohol use: none Drug use: none - Family History Mother History Unknown: Yes - Additional Family History Additional family history: Unobtainable at this moment Internal Medicine - H&P: Meds Acetaminophen [Tylenol] 975 mg PO TID 11/16/16 [History] Atorvastatin [Lipitor] 10 mg PO HS 11/16/16 [History] Cholecalciferol (D-3) [Vitamin D] 4,000 units PO DAILY 11/16/16 [History] Donepezil [Aricept] 10 mg PO HS 11/16/16 [History] Escitalopram [Lexapro] 10 mg PO HS 11/16/16 [History] Finasteride [Proscar] 5 mg PO DAILY 11/16/16 [History] Furosemide [Lasix] 20 mg PO DAILY 11/16/16 [History] Ipratropium/Albuterol Neb [Duoneb] 3 ml IH QID PRN 11/16/16 [History] MOM Conc [MILK OF MAGNESIA conc] 30 ml PO DAILY PRN 11/16/16 [History] Memantine [Namenda] 10 mg PO BID 11/16/16 [History] Polyethylene Glycol 3350 [MiraLAX] 17 gm PO DAILY PRN 11/16/16 [History] Potassium Chloride [K-Tab ER] 20 meq PO DAILY 11/16/16 [History] Sennosides/Docusate Sodium [Senna-Docusate Sodium Tablet] 2 tab PO HS PRN [History] Warfarin [Coumadin] 2.5 mg PO MO 11/16/16 [History] Warfarin [Coumadin] 5 mg PO SUTUWETHFRSA 11/16/16 [History] amLODIPine [Norvasc] 5 mg PO DAILY 11/16/16 [History] risperiDONE [Risperidone] 0.25 mg PO Q12H 11/16/16 [History] Lansoprazole [Prevacid] 30 mg PO HS 03/28/17 [History] Multivitamin [Multivitamins] 1 each PO DAILY 03/28/17 [History] Ondansetron HCl [Zofran] 4 mg PO Q8H 03/28/17 [History] Saline Nasal [place] [[place] Nasal [place]] 2 spray NS TID 03/28/17 [History] Allergies No Known Allergies Allergy (Verified 11/16/16 05:15) All Systems PM: A 10-system review of systems was performed and is negative for pertinent findings except as documented above in the HPI. Review of systems: Unable to be completed due to the patient's status - Constitutional Vitals: Temp Pulse Resp BP Pulse Ox 98.0 F 92 38 132/73 100 03/28/17 06:38 03/28/17 06:38 03/28/17 07:51 03/28/17 06:38 03/28/17 07:51 General appearance: Present: A&O X 0 - Head Head exam: Present: atraumatic, normocephalic - Eye Eye exam: Present: PERRL, conjuntiva pink, sclera anicteric Pupils: Present: PERRL Additional comments: Ecchymoses on his forehead - Neck Neck exam general surgery: Present: supple, trachea midline. Absent: lymphadenopathy - Respiratory Respiratory exam: Present: decreased breath sounds, CTAB, rales, wheezes ( Diffuse crackles and wheezing). Absent: accessory muscle use, rhonchi - Cardiovascular Cardiovascular exam: Present: RRR, +S1, +S2. Absent: diastolic murmur, gallop, rubs, systolic murmur - GI/Abdominal GI/Abdominal exam: Present: distended, normal bowel sounds, soft, no peritoneal signs. Absent: tenderness - Extremities Exam Extremities exam: Present: warm, radial pulses palpable and symetrical. Absent : calf tenderness, cyanotic, pedal edema - Neurological Exam Neurological exam: Present: CN II-XII intact, no focal deficits. Absent: oriented X3, pronater drift, facial droop, speech deficit - Skin Skin exam: Present: dry. Absent: intact Internal Med - H&P Results - Labs CBC & Chem 7: 03/28/17 03:53 03/28/17 03:53
[2017-03-28] MEDS ORDERED: Vancomycin (wt based) 1,000 MG VIAL IVPB SCH (09:00)
[2017-03-28] MEDS ORDERED: Cefepime HCl 1,000 MG in D5% in Water (Mini-Bag+) 100 ML IVPB SCH (09:00)
[2017-03-28] MEDS: Pantoprazole 40 MG VIAL IVP SCH (09:18)
[2017-03-28] MEDS: Levofloxacin 750 MG/150 ML 750 MG/150 ML BAG IVPB SCH (09:19)
[2017-03-28] MEDS: risperiDONE 0.25 MG TABLET PO SCH ×2 (09:38→19:54)
[2017-03-28] MEDS: Ipratropium/Albuterol Neb 3 ML IH SCH ×3 (09:41→22:37)
[2017-03-28] MEDS ORDERED: Perflutren Lipid Microsphere 1.3 ML in 0.9 % Sodium Chloride 8.7 ML IVP ONE (09:46)
[2017-03-28 10:52] LABS: Bilirubin,Urine Negative (Negative); Blood,Urine Negative (Negative); Clarity,Urine Cloudy (Clear); Color,Urine Yellow (Yellow); Glucose,Urine (UA) Normal (Normal); Ketones,Urine Negative (Negative); Leukocyte Esterase,Urine Negative (Negative); Nitrite,Urine Negative (Negative); Protein,Urine 30 mg/dL (Neg-Trace); Specific Gravity,Urine 1.022 (1.010-1.025); Urobilinogen,Urine Normal (Normal)
[2017-03-28 10:55] LABS: Bacteria,Urine None Seen per hpf (None-Few); Hyaline Casts,Urine None Seen per lpf (None-Few); Squamous Epithelial Cell,Urine Many per lpf (None-Few)
[2017-03-28] MEDS ORDERED: Vancomycin 1,000 MG in D5% in Water 250 ML IVPB ONE (11:00)
[2017-03-28] MEDS ORDERED: Acetaminophen 650 MG RECTAL SUPP RC PRN (15:58)
[2017-03-28] MEDS: MethylPREDNISolone 40 MG/ML VIAL IVP SCH (16:20)
[2017-03-28] MEDS: *HR* Heparin 5,000 UNIT/ML VIAL SQ SCH (17:51)
[2017-03-28] MEDS: Cefepime HCl 1,000 MG in D5% in Water (Mini-Bag+) 100 ML IVPB SCH (17:52)
[2017-03-28] MEDS ORDERED: *HR* Warfarin 5 MG TABLET PO SCH (18:00)
[2017-03-28] MEDS ORDERED: Warfarin perPT PO PRN (18:00)
[2017-03-29] MEDS: MethylPREDNISolone 40 MG/ML VIAL IVP SCH ×2 (00:20→08:05)
[2017-03-29 02:48] LABS: Hematocrit 35.9 % (37.5-50.1); Hemoglobin 11.3 g/dL (12.9-16.9); Mean Corpuscular HGB Conc 31.5 g/dL (31.6-35.5); Mean Corpuscular Hemoglobin 29.1 pg (28.0-33.3); Mean Corpuscular Volume 92.5 fL (83.0-100.0); Mean Platelet Volume 9.6 fL (9.4-12.4); Platelet Count 200 K/mcL (140-400); Red Blood Count 3.88 M/mcL (4.19-5.50); Red Cell Distribution Width 15.2 % (11.5-14.5)
[2017-03-29 02:53] LABS: INR 2.8; Prothrombin Time 31.2 Seconds (9.4-12.1)
[2017-03-29 03:04] LABS: BUN/Creatinine Ratio 31 (6-26); Blood Urea Nitrogen 33 mg/dL (8-26); Calcium 9.2 mg/dL (8.6-10.8); Carbon Dioxide 28 mEq/L (19-29); Chloride 100 mEq/L (98-109); Glucose 132 mg/dL (70-99); Osmolality,Calculated 295 (280-300); Potassium 4.8 mEq/L (3.5-4.5); Sodium 138 mEq/L (136-145); eGFR For African Americans > 60 (> 60); eGFR For Non-African Americans > 60 (> 60)
[2017-03-29] MEDS: Ipratropium/Albuterol Neb 3 ML IH SCH ×4 (04:30→22:27)
[2017-03-29] MEDS: *HR* Heparin 5,000 UNIT/ML VIAL SQ SCH (06:00)
[2017-03-29] MEDS: Cefepime HCl 1,000 MG in D5% in Water (Mini-Bag+) 100 ML IVPB SCH (06:01)
[2017-03-29] MEDS: risperiDONE 0.25 MG TABLET PO SCH ×2 (07:31→22:00)
[2017-03-29] MEDS: Levofloxacin 750 MG/150 ML 750 MG/150 ML BAG IVPB SCH (08:05)
[2017-03-29] MEDS: Pantoprazole 40 MG VIAL IVP SCH (08:05)
[2017-03-29] MEDS: Vancomycin 750 MG in D5% in Water 250 ML IVPB SCH (11:23)
--- NOTE | 2017-03-29 14:11 | Internal Med Progress Note ---
Date of Encounter: 03/29/17 Time of Encounter: 11:20 - Assessment and plan (1) Acute respiratory failure with hypoxia Current Visit: Yes Status: Acute Assessment and plan: Continue O2 supplementation with BiPAP as needed. Due to acute COPD exacerbation/healthcare associated pneumonia. Treating underlying conditions. High risk for complications. (2) Pneumonia Current Visit: Yes Status: Suspected Assessment and plan: Suspected aspiration/healthcare associated pneumonia. On broad-spectrum antibiotics. Follow culture results. Qualifiers: Pneumonia type: aspiration pneumonia Aspiration pneumonia type: due to regurgitated food Laterality: bilateral Lung location: lower lobe of lung Qualified Code(s): J69.0 - Pneumonitis due to inhalation of food and vomit (3) Sepsis Current Visit: Yes Status: Acute Assessment and plan: Sepsis related to healthcare associated pneumonia. On broad-spectrum antibiotics. blood cultures have been negative so far. Qualifiers: Sepsis type: sepsis due to unspecified organism Qualified Code(s): A41.9 - Sepsis, unspecified organism (4) CHF (congestive heart failure) Current Visit: Yes Status: Acute Assessment and plan: Echocardiogram showed poor windows. Unable to visualize LV function appeared to be normal in apical four-chamber view. Patient may have underlying diastolic dysfunction. Will resume Lasix. Qualifiers: Congestive heart failure type: diastolic Congestive heart failure chronicity: acute on chronic Qualified Code(s): I50.33 - Acute on chronic diastolic (congestive) heart failure (5) Dementia Current Visit: Yes Status: Chronic Assessment and plan: Chronic dementia. On risperidone for agitation. Continue Namenda Qualifiers: Dementia type: Alzheimer's disease Alzheimer's disease onset: other onset Dementia behavioral disturbance: without behavioral disturbance Qualified Code(s): G30.8 - Other Alzheimer's disease; F02.80 - Dementia in other diseases classified elsewhere without behavioral disturbance (6) Esophagitis Current Visit: No Status: Chronic Assessment and plan: continue Protonix. Dysphagia evaluation by speech therapy.. Patient has a prior diagnosis of achalasia and during his last admission here in November, there was consideration for Botox injection to treat his symptoms but he had a PE prior to that and was on Coumadin with therapeutic INR. (7) Hypertension Current Visit: Yes Status: Chronic Assessment and plan: Well-controlled Qualifiers: Hypertension type: essential hypertension Qualified Code(s): I10 - Essential (primary) hypertension (8) Pulmonary embolism Current Visit: No Status: Acute Assessment and plan: On Coumadin. INR is therapeutic Qualifiers: Pulmonary embolism type: other Chronicity: unspecified Acute cor pulmonale presence: without acute cor pulmonale Qualified Code(s): I26.99 - Other pulmonary embolism without acute cor pulmonale - Subjective Interval history: Patient wearing BiPAP and is lying in bed. Appears comfortable overall. Denies any pain. Having cough. No fever chills overnight - Constitutional Vitals: Temp Pulse Resp BP Pulse Ox 98.0 F 92 26 120/59 98 03/29/17 11:14 03/29/17 11:14 03/29/17 11:14 03/29/17 11:14 03/29/17 11:14 General appearance: Present: A&O X 0, mild distress - ENT Additional comments: BiPAP mask in place - Cardiovascular Cardiovascular exam: Present: RRR, +S1, +S2. Absent: diastolic murmur, gallop, rubs, systolic murmur - GI/Abdominal GI/Abdominal exam: Present: normal bowel sounds, soft, no peritoneal signs. Absent: distended, tenderness - Extremities Exam Extremities exam: Present: warm, radial pulses palpable and symetrical. Absent : calf tenderness, cyanotic, pedal edema - Neurological Exam Neurological exam: Present: alert, no focal deficits. Absent: facial droop, speech deficit - Skin Skin exam: Present: dry, intact Internal Medicine: Result - Labs CBC & Chem 7: 03/29/17 02:33 03/29/17 02:33 Labs: Short CBC 03/29/17 Range/Units 02:33 WBC 16.5 H (4.3-11.1) K/mcL Hgb 11.3 L (12.9-16.9) g/dL Hct 35.9 L (37.5-50.1) % Plt Count 200 (140-400) K/mcL BMP 03/29/17 02:33 Sodium 138 Potassium 4.8 H Chloride 100 Carbon Dioxide 28 BUN 33 H D Creatinine 1.07 Glucose 132 H Calcium 9.2 - ABG Interpretation ABG results: ABG ABG pH 7.30 pH Units (7.32-7.45) L 03/28/17 04:12 ABG pCO2 60 mmHg (35-45) H 03/28/17 04:12 ABG pO2 180 mmHg (85-104) H 03/28/17 04:12 ABG O2 Saturation 100 % (95-98) H 03/28/17 04:12 PT/INR, D-dimer PT 31.2 Seconds (9.4-12.1) H 03/29/17 02:33 Consult Discharge Plan - Plan [facility]errals: [facility] [Primary Care Provider] -
[2017-03-29] MEDS: *HR* Morphine 2 MG/ML SYRINGE IVP PRN (14:28)
[2017-03-29] MEDS: Piperacillin/Tazobactam 3.375 GM in D5% in Water (Mini-Bag+) 100 ML IVPB SCH (16:20)
[2017-03-29] MEDS: Furosemide 20 MG TABLET PO SCH (16:20)
[2017-03-29] MEDS ORDERED: *HR* Warfarin 2.5 MG TABLET PO ONE (18:00)
[2017-03-30] MEDS: Piperacillin/Tazobactam 3.375 GM in D5% in Water (Mini-Bag+) 100 ML IVPB SCH ×3 (00:08→16:34)
[2017-03-30] MEDS: Ipratropium/Albuterol Neb 3 ML IH SCH ×4 (04:00→23:20)
[2017-03-30] MEDS: *HR* Morphine 2 MG/ML SYRINGE IVP PRN (07:47)
[2017-03-30] MEDS ORDERED: Levofloxacin 750 MG/150 ML 750 MG/150 ML BAG IVPB SCH (09:00)
[2017-03-30] MEDS: Furosemide 20 MG TABLET PO SCH (09:04)
[2017-03-30] MEDS: Pantoprazole 40 MG VIAL IVP SCH (09:04)
[2017-03-30] MEDS: risperiDONE 0.25 MG TABLET PO SCH ×2 (09:04→20:19)
[2017-03-30] MEDS: Vancomycin 750 MG in D5% in Water 250 ML IVPB SCH (10:42)
--- NOTE | 2017-03-30 13:54 | Internal Med Progress Note ---
Date of Encounter: 03/30/17 Time of Encounter: 10:20 - Assessment and plan (1) Acute respiratory failure with hypoxia Current Visit: Yes Status: Acute Assessment and plan: Improving. On 4 L nasal cannula. Continue O2 supplementation. Continue treating underlying conditions. Moderate risk for complications. (2) Pneumonia Current Visit: Yes Status: Suspected Assessment and plan: Blood cultures have been negative. Continue IV antibiotics. May de-escalate tomorrow if cultures remain negative and leukocytosis improves. Qualifiers: Pneumonia type: aspiration pneumonia Aspiration pneumonia type: due to regurgitated food Laterality: bilateral Lung location: lower lobe of lung Qualified Code(s): J69.0 - Pneumonitis due to inhalation of food and vomit (3) Sepsis Current Visit: Yes Status: Acute Assessment and plan: From pneumonia. Improving clinically. Qualifiers: Sepsis type: sepsis due to unspecified organism Qualified Code(s): A41.9 - Sepsis, unspecified organism (4) CHF (congestive heart failure) Current Visit: Yes Status: Acute Assessment and plan: Continue Lasix. Qualifiers: Congestive heart failure type: diastolic Congestive heart failure chronicity: acute on chronic Qualified Code(s): I50.33 - Acute on chronic diastolic (congestive) heart failure (5) Dementia Current Visit: Yes Status: Chronic Assessment and plan: On Namenda and risperidone. Qualifiers: Dementia type: Alzheimer's disease Alzheimer's disease onset: other onset Dementia behavioral disturbance: without behavioral disturbance Qualified Code(s): G30.8 - Other Alzheimer's disease; F02.80 - Dementia in other diseases classified elsewhere without behavioral disturbance (6) Esophagitis Current Visit: Yes Status: Chronic Assessment and plan: With underlying achalasia. Speech therapy has been consulted for evaluation. Continue PPI (7) Hypertension Current Visit: Yes Status: Chronic Assessment and plan: Well-controlled Qualifiers: Hypertension type: essential hypertension Qualified Code(s): I10 - Essential (primary) hypertension (8) Pulmonary embolism Current Visit: No Status: Chronic Assessment and plan: History of pulmonary embolism earlier this year. On Coumadin with therapeutic INR Qualifiers: Pulmonary embolism type: other Chronicity: unspecified Acute cor pulmonale presence: without acute cor pulmonale Qualified Code(s): I26.99 - Other pulmonary embolism without acute cor pulmonale - Subjective Interval history: Patient is currently on nasal cannula. Denies any new complaints at this time. Denies any pain. No chest discomfort. No palpitations. - Constitutional Vitals: Temp Pulse Resp BP Pulse Ox 98.0 F 82 18 110/59 94 03/30/17 12:08 03/30/17 12:08 03/30/17 12:08 03/30/17 12:08 03/30/17 12:08 General appearance: Present: A&O X 1, mild distress, answers questions appropriately - Neck Neck exam general surgery: Present: supple, trachea midline. Absent: lymphadenopathy - Respiratory Respiratory exam: Present: prolonged expiratory phase, wheezes (Bilateral expiratory wheezes present). Absent: accessory muscle use, rales, rhonchi - GI/Abdominal GI/Abdominal exam: Present: normal bowel sounds, soft, no peritoneal signs. Absent: distended, tenderness - Extremities Exam Extremities exam: Present: warm, radial pulses palpable and symetrical. Absent : calf tenderness, cyanotic, pedal edema - Neurological Exam Neurological exam: Present: alert, no focal deficits. Absent: facial droop, speech deficit - Skin Skin exam: Present: dry, intact Internal Medicine: Result - Labs CBC & Chem 7: 03/29/17 02:33 03/29/17 02:33 - ABG Interpretation ABG results: ABG ABG pH 7.30 pH Units (7.32-7.45) L 03/28/17 04:12 ABG pCO2 60 mmHg (35-45) H 03/28/17 04:12 ABG pO2 180 mmHg (85-104) H 03/28/17 04:12 ABG O2 Saturation 100 % (95-98) H 03/28/17 04:12 PT/INR, D-dimer PT 31.2 Seconds (9.4-12.1) H 03/29/17 02:33 Consult Discharge Plan - Plan [facility]errals: [facility] [Primary Care Provider] - (PT IS FROM [facility] AT [place] NO PCP APPOINTMENT NEEDED) - Attending Attestation This document has been at least partially created by [employer] recognition technology by Dr. Hardy. Errors in grammar, wording or other phrases may exist. If errors are found after the documentation is signed, they will be addressed individually in the addendum section of this document when appropriate.
[2017-03-30] MEDS ORDERED: *HR* Warfarin 2.5 MG TABLET PO ONE (18:00)
[2017-03-30] MEDS ORDERED: *HR* Warfarin 2.5 MG TABLET PO SCH (18:00)
[2017-03-31] MEDS: Piperacillin/Tazobactam 3.375 GM in D5% in Water (Mini-Bag+) 100 ML IVPB SCH ×4 (00:16→23:48)
[2017-03-31 04:20] LABS: Eosinophils # 0.1 K/mcL (0.0-0.6); Eosinophils % 0.8 %; Hematocrit 34.1 % (37.5-50.1); Hemoglobin 10.7 g/dL (12.9-16.9); Immature Granulocytes % 0.5 % (0-4); Lymphocytes # 0.8 K/mcL (0.6-4.6); Lymphocytes % 7.9 %; Mean Corpuscular HGB Conc 31.4 g/dL (31.6-35.5); Mean Corpuscular Volume 92.4 fL (83.0-100.0); Mean Platelet Volume 9.9 fL (9.4-12.4); Monocytes # 0.8 K/mcL (0.0-1.3); Monocytes % 7.1 %; Neutrophils # 8.8 K/mcL (1.6-8.9); Platelet Count 198 K/mcL (140-400); Red Blood Count 3.69 M/mcL (4.19-5.50); Segmented Neutrophils % 83.7 %
[2017-03-31 04:23] LABS: INR 2.8; Prothrombin Time 30.6 Seconds (9.4-12.1)
[2017-03-31 04:32] LABS: BUN/Creatinine Ratio 40 (6-26); Carbon Dioxide 30 mEq/L (19-29); Chloride 100 mEq/L (98-109); Glucose 94 mg/dL (70-99); Osmolality,Calculated 304 (280-300); Sodium 141 mEq/L (136-145); eGFR For African Americans > 60 (> 60); eGFR For Non-African Americans > 60 (> 60)
[2017-03-31 04:33] LABS: Blood Urea Nitrogen 46 mg/dL (8-26); Potassium 3.7 mEq/L (3.5-4.5)
[2017-03-31] MEDS: Ipratropium/Albuterol Neb 3 ML IH SCH ×4 (06:21→22:22)
--- NOTE | 2017-03-31 07:22 | Electrocardiograph Report ---
[address] [address] Test Date: 2017-03-28 Pat Name: Jake Alonso Department: 104 Room: 2N02 Gender: M Director Of Business Systems: : 1930 Requested By: Nafisa Mukherjee Order Number: [id number] Reading MD: Wilber Lima MD Measurements Intervals [place] Rate: 101 P: 68 CO: 143 QRS: 23 QRSD: 85 T: 46 QT: 359 QTc: 417 Interpretive Statements SINUS TACHYCARDIA Electronically Signed On 03-31-2017 7:21:07 EDT by Wilber Lima MD
[2017-03-31] MEDS: risperiDONE 0.25 MG TABLET PO SCH ×2 (08:10→20:13)
[2017-03-31] MEDS: Furosemide 20 MG TABLET PO SCH (08:10)
[2017-03-31] MEDS: Pantoprazole 40 MG VIAL IVP SCH (08:11)
[2017-03-31] MEDS ORDERED: Aminoglycoside Consult 1 EACH MC ONE (08:38)
[2017-03-31] MEDS ORDERED: Levofloxacin 750 MG/150 ML 750 MG/150 ML BAG IVPB SCH (09:00)
--- NOTE | 2017-03-31 11:16 | Discharge Summary ---
Date of Encounter: 03/31/17 Time of Encounter: 11:15 - Discharge Diagnosis (1) Acute respiratory failure with hypoxia Status: Acute (2) Pulmonary embolism Status: Chronic Qualifiers: Pulmonary embolism type: other Chronicity: unspecified Acute cor pulmonale presence: without acute cor pulmonale Qualified Code(s): I26.99 - Other pulmonary embolism without acute cor pulmonale (3) Pneumonia Status: Acute Qualifiers: Pneumonia type: aspiration pneumonia Aspiration pneumonia type: due to regurgitated food Laterality: bilateral Lung location: lower lobe of lung Qualified Code(s): J69.0 - Pneumonitis due to inhalation of food and vomit (4) Hypertension Status: Chronic Qualifiers: Hypertension type: essential hypertension Qualified Code(s): I10 - Essential (primary) hypertension (5) CHF (congestive heart failure) Status: Acute Qualifiers: Congestive heart failure type: diastolic Congestive heart failure chronicity: acute on chronic Qualified Code(s): I50.33 - Acute on chronic diastolic (congestive) heart failure (6) Dementia Status: Chronic Qualifiers: Dementia type: Alzheimer's disease Alzheimer's disease onset: other onset Dementia behavioral disturbance: without behavioral disturbance Qualified Code(s): G30.8 - Other Alzheimer's disease; F02.80 - Dementia in other diseases classified elsewhere without behavioral disturbance - Discharge Medications Home Medications: Acetaminophen [Tylenol] 975 mg PO TID 11/16/16 [History] Atorvastatin [Lipitor] 10 mg PO HS 11/16/16 [History] Cholecalciferol (D-3) [Vitamin D] 4,000 units PO DAILY 11/16/16 [History] Donepezil [Aricept] 10 mg PO HS 11/16/16 [History] Escitalopram [Lexapro] 10 mg PO HS 11/16/16 [History] Finasteride [Proscar] 5 mg PO DAILY 11/16/16 [History] Furosemide [Lasix] 20 mg PO DAILY 11/16/16 [History] Ipratropium/Albuterol Neb [Duoneb] 3 ml IH QID PRN 11/16/16 [History] MOM Conc [MILK OF MAGNESIA conc] 30 ml PO DAILY PRN 11/16/16 [History] Memantine [Namenda] 10 mg PO BID 11/16/16 [History] Polyethylene Glycol 3350 [MiraLAX] 17 gm PO DAILY PRN 11/16/16 [History] Potassium Chloride [K-Tab ER] 20 meq PO DAILY 11/16/16 [History] Sennosides/Docusate Sodium [Senna-Docusate Sodium Tablet] 2 tab PO HS PRN [History] Warfarin [Coumadin] 2.5 mg PO MO 11/16/16 [History] Warfarin [Coumadin] 5 mg PO SUTUWETHFRSA 11/16/16 [History] amLODIPine [Norvasc] 5 mg PO DAILY 11/16/16 [History] risperiDONE [Risperidone] 0.25 mg PO BID 11/16/16 [History] Lansoprazole [Prevacid] 30 mg PO HS 03/28/17 [History] Multivitamin [Multivitamins] 1 cap PO DAILY 03/28/17 [History] Ondansetron HCl [Zofran] 4 mg PO Q8H 03/28/17 [History] Saline Nasal [place] [[place] Nasal [place]] 2 spray NS TID 03/28/17 [History] risperiDONE [Risperdal] 0.25 mg PO Q12H PRN 03/28/17 [History] Allergies/Adverse Reactions: Allergies No Known Allergies Allergy (Verified 11/16/16 05:15) Date of admission: 03/28/17 05:32 Primary care physician: PCP [place] Consults: 03/28/17 07:00 Consult to Shopping Inspector [CONS] Routine Reason for SW Consult: Patient is from [facility]. Unclear what team the patient is on at the [facility]. Patient is unable to answer questions at this time. Signed state DNR form present at this facility from [facility]; power of corporate associate attorney also present. Patient's baseline functional status is yet to be determined. 03/28/17 09:41 Consult to Speech Therapy [CONS] Routine Comment: Evaluate, develop and implement POC Reason for Consult: nonverbal, usually pureed diet Call Completed: No Discharging clinician: Gaurav Lau Anticipated date of discharge: 03/31/17 - Patient Status Condition: Good - Discharge Instructions Follow Up With: [facility] [Primary Care Provider] - (PT IS FROM [facility] [place] NO PCP APPOINTMENT NEEDED) Hospital course: Mr. Alonso is a 86 year old male - Time Spent with Patient Total time spent providing and/or coordinating discharge services: - Constitutional Vitals: Temp Pulse Resp BP Pulse Ox 99.2 F 91 16 148/80 92 03/31/17 10:43 03/31/17 10:43 03/31/17 10:54 03/31/17 10:43 03/31/17 10:54 General appearance: Present: A&O X 1, pleasant, no acute distress, answers questions appropriately - Head Head exam: Present: atraumatic, normocephalic - Eye Eye exam: Present: PERRL, conjuntiva pink, sclera anicteric Pupils: Present: PERRL - Neck Neck exam general surgery: Present: supple, trachea midline. Absent: lymphadenopathy - Respiratory Respiratory exam: Absent: accessory muscle use, rales, rhonchi, wheezes Additional comments: Diffuse coarse breath sounds bilaterally - Cardiovascular Cardiovascular exam: Present: RRR, +S1, +S2. Absent: diastolic murmur, gallop, rubs, systolic murmur - GI/Abdominal GI/Abdominal exam: Present: normal bowel sounds, soft, no peritoneal signs. Absent: distended, tenderness - Extremities Exam Extremities exam: Present: warm, radial pulses palpable and symetrical. Absent : calf tenderness, cyanotic, pedal edema - Neurological Exam Neurological exam: Present: alert, CN II-XII intact, no focal deficits. Absent : oriented X3, pronater drift, facial droop, speech deficit - Skin Skin exam: Present: dry, intact
--- NOTE | 2017-03-31 11:18 | Physician Discharge Referral ---
ExtendedCare Referral Info Transfer To: [place] Provider in Charge: Dr. Lau Provider in Charge after Transfer: PCP Institutional Level of Care: Skilled - Diagnosis (1) Acute respiratory failure with hypoxia Priority: Primary Status: Acute (2) Pulmonary embolism Priority: Secondary Status: Chronic (3) Pneumonia Priority: Primary Status: Acute (4) Hypertension Priority: Secondary Status: Chronic (5) CHF (congestive heart failure) Priority: Primary Status: Acute (6) Dementia Priority: Secondary Status: Chronic Prognosis: Fair Aware of Diagnosis: Patient Aware of Prognosis: Patient - Transfer Medications Prescriptions: levoFLOXacin [Levofloxacin] 750 mg PO Q48H #4 tablet Home Medications: Acetaminophen [Tylenol] 975 mg PO TID 11/16/16 [History] Atorvastatin [Lipitor] 10 mg PO HS 11/16/16 [History] Cholecalciferol (D-3) [Vitamin D] 4,000 units PO DAILY 11/16/16 [History] Donepezil [Aricept] 10 mg PO HS 11/16/16 [History] Escitalopram [Lexapro] 10 mg PO HS 11/16/16 [History] Finasteride [Proscar] 5 mg PO DAILY 11/16/16 [History] Furosemide [Lasix] 20 mg PO DAILY 11/16/16 [History] Ipratropium/Albuterol Neb [Duoneb] 3 ml IH QID PRN 11/16/16 [History] MOM Conc [MILK OF MAGNESIA conc] 30 ml PO DAILY PRN 11/16/16 [History] Memantine [Namenda] 10 mg PO BID 11/16/16 [History] Polyethylene Glycol 3350 [MiraLAX] 17 gm PO DAILY PRN 11/16/16 [History] Potassium Chloride [K-Tab ER] 20 meq PO DAILY 11/16/16 [History] Sennosides/Docusate Sodium [Senna-Docusate Sodium Tablet] 2 tab PO HS PRN [History] Warfarin [Coumadin] 2.5 mg PO MO 11/16/16 [History] Warfarin [Coumadin] 5 mg PO SUTUWETHFRSA 11/16/16 [History] risperiDONE [Risperidone] 0.25 mg PO BID 11/16/16 [History] Lansoprazole [Prevacid] 30 mg PO HS 03/28/17 [History] Multivitamin [Multivitamins] 1 cap PO DAILY 03/28/17 [History] Ondansetron HCl [Zofran] 4 mg PO Q8H 03/28/17 [History] Saline Nasal [place] [[place] Nasal [place]] 2 spray NS TID 03/28/17 [History] risperiDONE [Risperdal] 0.25 mg PO Q12H PRN 03/28/17 [History] levoFLOXacin [Levofloxacin] 750 mg PO Q48H #4 tablet 04/01/17 [Rx] Allergies/Adverse Reactions: Allergies No Known Allergies Allergy (Verified 11/16/16 05:15) - Respiratory Orders Oxygen / L per min (2-3L per minute, target O2 sat of 92-93%) Smoking Cessation: Smoking cessation has been advised. For more information, call the [facility] Quit Line at 1-971-EROE-NOW. - Advance Directives Code Status: DNR-Arrest - Mobility Orders Other (As per PT) - Rehabiliation Orders Rehab Potential: Poor - Diet Orders Pureed (PUREED TEXTURES, HONEY THICK LIQUIDS (NO STRAWS), ASSIST FEEDS ALWAYS) CERTIFICATION: I certify that the transfer of the above named patient to an Extended Care Facility is necessary for the continuing treatment of the diagnosis listed. The above information is true and accurate reflection of patient's current condition. Confidential - Redisclosure prohibited without a patient's written consent.
[2017-03-31] MEDS ORDERED: risperiDONE 0.25 MG TABLET PO PRN (13:53)
--- NOTE | 2017-03-31 14:39 | Internal Med Progress Note ---
Date of Encounter: 03/31/17 Time of Encounter: 10:00 - Assessment and plan (1) Acute respiratory failure with hypoxia Current Visit: Yes Status: Acute Assessment and plan: Secondary to aspiration pneumonia and pneumonitis. Patient continues to require 4-6 L of oxygen. With associated upper airway coarse sounds. Continue to taper down oxygen, anticipate early discharge depending on clinical outcome. Continue to monitor closely. (2) Pulmonary embolism Current Visit: Yes Status: Chronic Assessment and plan: History of pulmonary embolism earlier this year. On Coumadin with therapeutic INR Qualifiers: Pulmonary embolism type: other Chronicity: unspecified Acute cor pulmonale presence: without acute cor pulmonale Qualified Code(s): I26.99 - Other pulmonary embolism without acute cor pulmonale (3) Pneumonia Current Visit: Yes Status: Acute Assessment and plan: Blood cultures have been negative. Continue IV antibiotics. Has received 3 days of vancomycin, Zosyn, levofloxacin. We will discontinue vancomycin today. Continue Zosyn and levofloxacin. Blood cultures remain negative, no sputum cultures. Qualifiers: Pneumonia type: aspiration pneumonia Aspiration pneumonia type: due to regurgitated food Laterality: bilateral Lung location: lower lobe of lung Qualified Code(s): J69.0 - Pneumonitis due to inhalation of food and vomit (4) Hypertension Current Visit: Yes Status: Chronic Assessment and plan: Well-controlled Qualifiers: Hypertension type: essential hypertension Qualified Code(s): I10 - Essential (primary) hypertension (5) CHF (congestive heart failure) Current Visit: Yes Status: Acute Assessment and plan: Continue Lasix. Qualifiers: Congestive heart failure type: diastolic Congestive heart failure chronicity: acute on chronic Qualified Code(s): I50.33 - Acute on chronic diastolic (congestive) heart failure (6) Dementia Current Visit: Yes Status: Chronic Assessment and plan: On Namenda and risperidone, continue same. Qualifiers: Dementia type: Alzheimer's disease Alzheimer's disease onset: other onset Dementia behavioral disturbance: without behavioral disturbance Qualified Code(s): G30.8 - Other Alzheimer's disease; F02.80 - Dementia in other diseases classified elsewhere without behavioral disturbance - Subjective Interval history: 86-year-old male DNR [facility] Admitted the pain managed for acute hypoxic respiratory failure secondary to aspiration pneumonia, and CHF exacerbation. Patient with past medical history of dementia, advanced, resident of [facility] with recurrent aspirations. Speech and swallow evaluation noted, diet has been adjusted. Seen and evaluated at bedside, sitting up in bed, oriented to person only. To every question I asked the patient replies "I do not know" - Constitutional Vitals: Temp Pulse Resp BP Pulse Ox 99.2 F 91 16 148/80 92 03/31/17 12:15 03/31/17 12:15 03/31/17 12:15 03/31/17 12:15 03/31/17 12:15 General appearance: Present: A&O X 1, pleasant, no acute distress, answers questions appropriately - Head Head exam: Present: atraumatic, normocephalic - Eye Eye exam: Present: PERRL, conjuntiva pink, sclera anicteric Pupils: Present: PERRL - Neck Neck exam general surgery: Present: supple, trachea midline. Absent: lymphadenopathy - Respiratory Additional comments: Diffuse coarse breath sounds bilaterally - Cardiovascular Cardiovascular exam: Present: RRR, +S1, +S2. Absent: diastolic murmur, gallop, rubs, systolic murmur - GI/Abdominal GI/Abdominal exam: Present: normal bowel sounds, soft, no peritoneal signs. Absent: distended, tenderness - Extremities Exam Extremities exam: Present: warm, radial pulses palpable and symetrical. Absent : calf tenderness, cyanotic, pedal edema - Neurological Exam Neurological exam: Present: alert, CN II-XII intact, no focal deficits. Absent : oriented X3, pronater drift, facial droop, speech deficit - Skin Skin exam: Present: dry, intact Internal Medicine: Result - Labs CBC & Chem 7: 03/31/17 03:56 03/31/17 03:56 Labs: Short CBC 03/31/17 Range/Units 03:56 WBC 10.5 (4.3-11.1) K/mcL Hgb 10.7 L (12.9-16.9) g/dL Hct 34.1 L (37.5-50.1) % Plt Count 198 (140-400) K/mcL Neutrophils # 8.8 (1.6-8.9) K/mcL BMP 03/31/17 03:56 Sodium 141 Potassium 3.7 D Chloride 100 Carbon Dioxide 30 H BUN 46 H D Creatinine 1.14 Glucose 94 Calcium 9.0 - ABG Interpretation ABG results: ABG ABG pH 7.30 pH Units (7.32-7.45) L 03/28/17 04:12 ABG pCO2 60 mmHg (35-45) H 03/28/17 04:12 ABG pO2 180 mmHg (85-104) H 03/28/17 04:12 ABG O2 Saturation 100 % (95-98) H 03/28/17 04:12 PT/INR, D-dimer PT 30.6 Seconds (9.4-12.1) H 03/31/17 03:56 Consult Discharge Plan - Plan [facility]errals: [facility] [Primary Care Provider] - (PT IS FROM [facility] [place] NO PCP APPOINTMENT NEEDED)
[2017-04-01] MEDS: Ipratropium/Albuterol Neb 3 ML IH SCH ×3 (03:36→10:49)
[2017-04-01 04:52] LABS: INR 2.5; Prothrombin Time 27.6 Seconds (9.4-12.1)
[2017-04-01] MEDS: Furosemide 20 MG TABLET PO SCH (07:39)
[2017-04-01] MEDS: Piperacillin/Tazobactam 3.375 GM in D5% in Water (Mini-Bag+) 100 ML IVPB SCH (07:40)
[2017-04-01] MEDS: risperiDONE 0.25 MG TABLET PO SCH (09:30)
--- NOTE | 2017-04-01 09:40 | Discharge Summary ---
Date of Encounter: 04/01/17 Time of Encounter: 09:39 - Discharge Diagnosis (1) Acute respiratory failure with hypoxia Priority: Primary Status: Acute (2) Pulmonary embolism Priority: Secondary Status: Chronic Qualifiers: Pulmonary embolism type: other Chronicity: unspecified Acute cor pulmonale presence: without acute cor pulmonale Qualified Code(s): I26.99 - Other pulmonary embolism without acute cor pulmonale (3) Pneumonia Priority: Primary Status: Acute Qualifiers: Pneumonia type: aspiration pneumonia Aspiration pneumonia type: due to regurgitated food Laterality: bilateral Lung location: lower lobe of lung Qualified Code(s): J69.0 - Pneumonitis due to inhalation of food and vomit (4) Hypertension Priority: Secondary Status: Chronic Qualifiers: Hypertension type: essential hypertension Qualified Code(s): I10 - Essential (primary) hypertension (5) CHF (congestive heart failure) Priority: Secondary Status: Chronic Qualifiers: Congestive heart failure type: diastolic Congestive heart failure chronicity: acute on chronic Qualified Code(s): I50.33 - Acute on chronic diastolic (congestive) heart failure (6) Dementia Priority: Secondary Status: Chronic Qualifiers: Dementia type: Alzheimer's disease Alzheimer's disease onset: other onset Dementia behavioral disturbance: without behavioral disturbance Qualified Code(s): G30.8 - Other Alzheimer's disease; F02.80 - Dementia in other diseases classified elsewhere without behavioral disturbance - Discharge Medications Prescriptions: levoFLOXacin [Levofloxacin] 750 mg PO Q48H #4 tablet Home Medications: Acetaminophen [Tylenol] 975 mg PO TID 11/16/16 [History] Atorvastatin [Lipitor] 10 mg PO HS 11/16/16 [History] Cholecalciferol (D-3) [Vitamin D] 4,000 units PO DAILY 11/16/16 [History] Donepezil [Aricept] 10 mg PO HS 11/16/16 [History] Escitalopram [Lexapro] 10 mg PO HS 11/16/16 [History] Finasteride [Proscar] 5 mg PO DAILY 11/16/16 [History] Furosemide [Lasix] 20 mg PO DAILY 11/16/16 [History] Ipratropium/Albuterol Neb [Duoneb] 3 ml IH QID PRN 11/16/16 [History] MOM Conc [MILK OF MAGNESIA conc] 30 ml PO DAILY PRN 11/16/16 [History] Memantine [Namenda] 10 mg PO BID 11/16/16 [History] Polyethylene Glycol 3350 [MiraLAX] 17 gm PO DAILY PRN 11/16/16 [History] Potassium Chloride [K-Tab ER] 20 meq PO DAILY 11/16/16 [History] Sennosides/Docusate Sodium [Senna-Docusate Sodium Tablet] 2 tab PO HS PRN [History] Warfarin [Coumadin] 2.5 mg PO MO 11/16/16 [History] Warfarin [Coumadin] 5 mg PO SUTUWETHFRSA 11/16/16 [History] risperiDONE [Risperidone] 0.25 mg PO BID 11/16/16 [History] Lansoprazole [Prevacid] 30 mg PO HS 03/28/17 [History] Multivitamin [Multivitamins] 1 cap PO DAILY 03/28/17 [History] Ondansetron HCl [Zofran] 4 mg PO Q8H 03/28/17 [History] Saline Nasal [place] [[place] Nasal [place]] 2 spray NS TID 03/28/17 [History] risperiDONE [Risperdal] 0.25 mg PO Q12H PRN 03/28/17 [History] levoFLOXacin [Levofloxacin] 750 mg PO Q48H #4 tablet 04/01/17 [Rx] Allergies/Adverse Reactions: Allergies No Known Allergies Allergy (Verified 11/16/16 05:15) Date of admission: 03/28/17 05:32 Primary care physician: PCP [place] Consults: 03/28/17 07:00 Consult to Global Account Executive [CONS] Routine Reason for SW Consult: Patient is from [facility]. Unclear what team the patient is on at the [facility]. Patient is unable to answer questions at this time. Signed state DNR form present at this facility from [facility]; power of chief petroleum engineer also present. Patient's baseline functional status is yet to be determined. 03/28/17 09:41 Consult to Speech Therapy [CONS] Routine Comment: Evaluate, develop and implement POC Reason for Consult: nonverbal, usually pureed diet Call Completed: No Discharging clinician: Gaurav Lau Anticipated date of discharge: 04/01/17 - Patient Status Disposition: Transfer SNF Condition: Good Functional capacity at discharge: uses cane/walker Overall status at discharge: patient is progressing back to baseline - Discharge Instructions Follow Up With: [facility] [Primary Care Provider] - (PT IS FROM ALF AT [facility] NO PCP APPOINTMENT NEEDED) - Diet and Activity Activity: resume usual activities as tolerated, wear oxygen at all times Diet: other (Pureed textures, honey thickened liquids, assist feeds) Interval History: See below Hospital course: Mr. Alonso is a 86 year old male He has a PMH of advanced dementis (resident of [place] SN[facility]), Oriented to person only , no behavioral problems, Severe achalasia, recurrent aspirations due to achalasia, Hx of PE on Coumadin, Chronic CHF, HTN Patient was admitted for management of sepsis secondary to acute hypoxic respiratory failure secondary to aspiration pneumonia, acute on chronic CHF. He was in his usual state of health till day of admission when he was transferred from the [place] by EMS for hypoxia. On admission, patient was completely obtunded at time of admission. Labs revealed White blood cell count is 13.4 respiratory rate 40 heart rate 106 blood pressure 182/87 glucose 188 INR 2.1 lactic acid was 2.9 came down to 2.3 pH 7.3 PCO2 60 PO2 180 on BiPAP. Chest x-ray shows bilateral airspace opacities/possible pneumonia. He was admitted and started on empiric antibitics-Levoflox, Vanco, Zosyn, cultures were done, nailing machine operator was consulted for dietary modification. Patient is seen and evaluated this morning, he is not in respiratory distress, Oxygen requirement has decreased significantly, to 2L per minutes, he is comfortable Sepsis has resolved as his leukocytosis has improved, HR has been normal, Blood and urine cultures were negative Patient's BP has been WNL since admission hence his amlodipine has been held His other chronic conditions remain stable His renal function is at baseline and his INR is therapeutic He is stable for discharge back to SNF with Home O2, follow up with GI for Achalasia, PCP for INR checks, complete 7 days of levoflox(script made for 4 more doses-q48H) Dietary recommendations for patient's recurrent aspiration has been followed- recommend pureed diet, honey thickened liquids without straw, patient's feed needs to be assisted He is DNR-[facility] - Time Spent with Patient Total time spent providing and/or coordinating discharge services: Greater than 30 minutes (40 minutes spent on patient review, chart review, medication reconciliation, prescription, documentation, discussion of plan of care with staff) - Constitutional Vitals: Temp Pulse Resp BP Pulse Ox 98.1 F 88 16 130/65 94 04/01/17 07:35 04/01/17 07:35 04/01/17 07:35 04/01/17 07:35 04/01/17 07:35 General appearance: Present: A&O X 1, pleasant, no acute distress, answers questions appropriately - Head Head exam: Present: normocephalic Additional comments: Right forehaed bruise, chronic, periorbital bruises - Eye Eye exam: Present: PERRL, conjuntiva pink, sclera anicteric Pupils: Present: PERRL - Neck Neck exam general surgery: Present: supple, trachea midline. Absent: lymphadenopathy - Respiratory Respiratory exam: Absent: accessory muscle use, rales, rhonchi, wheezes Additional comments: few coarse breath sounds, otherwise good air entry bilaterally - Cardiovascular Cardiovascular exam: Present: RRR, +S1, +S2. Absent: diastolic murmur, gallop, rubs, systolic murmur - GI/Abdominal GI/Abdominal exam: Present: normal bowel sounds, soft, no peritoneal signs. Absent: distended, tenderness - Extremities Exam Extremities exam: Present: warm, radial pulses palpable and symetrical. Absent : calf tenderness, cyanotic, pedal edema - Neurological Exam Neurological exam: Present: alert, CN II-XII intact, no focal deficits. Absent : oriented X3, pronater drift, facial droop, speech deficit - Skin Skin exam: Present: dry
[2017-04-01 11:20] VITALS: BP 119/56
[2017-04-01] MEDS ORDERED: *HR* Warfarin 5 MG TABLET PO ONE (18:00)
== END 2017-04-01 14:13 | DRG 871 ==
LOC: EMEROO 03:38 → 2NNU 05:32 → SUATTDRO 05:32 → 2NNU 06:15
PROVIDERS: ADMIT Hospitalist; ATTEND Internal Medicine